=== PATIENT | male | born 1970 | race Caucasian/White ===

== ENCOUNTER 2019-12-18 05:38 | Emergency (ER) | payer MEDICAID ==
[~2019-12-18] VITALS: Ht 172.7 cm; Wt 89.0 kg
[2019-12-18] MEDS ORDERED: cloNIDine 0.1 mg tablet PO ONE (05:40)
[2019-12-18] MEDS ORDERED: normal saline 1000ML IV soln IVB ONE ×2 (05:40→07:00)
[2019-12-18 06:02] LABS: BASOPHILS # (AUTO) 0.1 X10'3 (0-0.2); BASOPHILS % (AUTO) 0.4 % (0-1); EOSINOPHILS # (AUTO) 0.2 X10'3 (0-0.9); EOSINOPHILS % (AUTO) 1.1 % (0-6); HEMATOCRIT 33.4 % (42.0-52.0); HEMOGLOBIN 10.9 g/dl (14.0-17.9); LYMPHOCYTES # (AUTO) 1.7 X10'3 (1.1-4.8); LYMPHOCYTES % (AUTO) 9.9 % (21-51); MEAN CORPUSCULAR HEMOGLOBIN 20.8 PG (27.0-31.0); MEAN CORPUSCULAR HGB CONC 32.6 g/dL (33.0-36.5); MEAN CORPUSCULAR VOLUME 63.8 FL (78-98); MEAN PLATELET VOLUME 7.6 FL (7.4-10.4); NEUTROPHILS # (AUTO) 13.8 X10'3 (1.8-7.7); NEUTROPHILS % (AUTO) 82.6 % (42-75); PLATELET COUNT 302 X10'3 (140-440); RED BLOOD COUNT 5.24 X10'6 (4.70-6.10); RED CELL DISTRIBUTION WIDTH 15.5 % (11.5-14.5); WHITE BLOOD COUNT 16.7 X10'3 (4.5-11.0)
[2019-12-18 06:23] LABS: ALANINE AMINOTRANSFERASE 38 U/L (12-78); ALBUMIN 4.2 G/DL (3.4-5.0); ALBUMIN/GLOBULIN RATIO 1.1 (1.1-1.5); ALKALINE PHOSPHATASE 102 IU/L (46-116); ANION GAP 14 (8-16); ASPARTATE AMINO TRANSFERASE 47 U/L (10-37); BILIRUBIN,TOTAL 0.5 MG/DL (0.1-1.0); BLOOD UREA NITROGEN 30 MG/DL (7-18); BUN/CREATININE RATIO 23.6 (5.4-32.0); CALCIUM 8.5 MG/DL (8.5-10.1); CHLORIDE 103 MMOL/L (99-107); CREATININE 1.27 MG/DL (0.60-1.10); GLUCOSE 175 MG/DL (70-104); POTASSIUM 3.8 MMOL/L (3.5-5.1); SODIUM 139 MMOL/L (135-145); TOTAL CARBON DIOXIDE 21.9 MMOL/L (24-32); TOTAL PROTEIN 7.9 G/DL (6.4-8.2); eGFR 60 ML/MIN
[2019-12-18 06:30] LABS: MAGNESIUM 2.3 MG/DL (1.5-2.4)
[2019-12-18 06:35] LABS: PLATELET ESTIMATE NORMAL; POLYCHROMASIA 1+
[2019-12-18 06:36] LABS: ANISOCYTOSIS 1+; ELLIPTOCYTES 1+; HYPOCHROMASIA 2+; MICROCYTOSIS 2+; TEAR DROP CELLS 2+
[2019-12-18] MEDS ORDERED: LORazepam 2 mg/ml vial IV ONE (07:00)
[2019-12-18 08:07] VITALS: BP 141/84
== END 2019-12-18 08:23 ==
LOC: ER 05:38
DX: S00.81XA Abrasion of other part of head, initial encounter (principal); T44.991A Poisoning by other drug primarily affecting the autonomic nervous system, accidental (unintentional), initial encounter; F12.90 Cannabis use, unspecified, uncomplicated; F15.90 Other stimulant use, unspecified, uncomplicated; Z88.0 Allergy status to penicillin; X58.XXXA Exposure to other specified factors, initial encounter; Y93.89 Activity, other specified; Y92.89 Other specified places as the place of occurrence of the external cause; Y99.9 Unspecified external cause status
CPT/HCPCS: 36415; 71045; 80053; 83735; 83880; 84484; 85025; 93005; 96374; 99284; J2060; J7030

== ENCOUNTER 2020-06-15 08:02 | Emergency (ER) | payer MEDICAID ==
[~2020-06-15] VITALS: Ht 172.7 cm; Wt 65.9 kg
[2020-06-15 08:12] VITALS: BP 148/82
[2020-06-15] MEDS ORDERED: PERM60CR19 TOP (08:45)
--- NOTE | 2020-06-15 08:50 | NUR ---
Patient seen and assessed by provider.
== END 2020-06-15 08:57 | disposition home or self-care (01) ==
LOC: ER 08:03
DX: B86 Scabies (principal); F12.90 Cannabis use, unspecified, uncomplicated; F15.90 Other stimulant use, unspecified, uncomplicated; F10.10 Alcohol abuse, uncomplicated; Z88.0 Allergy status to penicillin; Z79.899 Other long term (current) drug therapy; Y90.9 Presence of alcohol in blood, level not specified
CPT/HCPCS: 99283

== ENCOUNTER 2020-06-27 14:58 | Emergency (ER) | payer MEDICAID ==
[~2020-06-27] VITALS: Ht 172.7 cm; Wt 74.9 kg
[~2020-06-27 14:58] MED LIST: PERM60CR19 TOP
[2020-06-27 15:29] VITALS: BP 141/71
== END 2020-06-27 16:25 | disposition home or self-care (01) ==
LOC: ER 14:59
DX: F15.90 Other stimulant use, unspecified, uncomplicated (principal); F17.200 Nicotine dependence, unspecified, uncomplicated; F12.90 Cannabis use, unspecified, uncomplicated; F10.10 Alcohol abuse, uncomplicated; Z88.0 Allergy status to penicillin; Z79.899 Other long term (current) drug therapy; Y90.9 Presence of alcohol in blood, level not specified
CPT/HCPCS: 99281

== ENCOUNTER 2020-06-28 15:14 | Emergency (ER) | payer MEDICAID ==
[~2020-06-28] VITALS: Ht 175.3 cm; Wt 98.0 kg
[2020-06-28 16:20] LABS: BASOPHILS # (AUTO) 0.1 X10'3 (0-0.2); BASOPHILS % (AUTO) 1.2 % (0-1); EOSINOPHILS # (AUTO) 0.2 X10'3 (0-0.9); EOSINOPHILS % (AUTO) 2.7 % (0-6); HEMATOCRIT 34.6 % (42.0-52.0); HEMOGLOBIN 11.2 g/dl (14.0-17.9); LYMPHOCYTES # (AUTO) 2.7 X10'3 (1.1-4.8); MEAN CORPUSCULAR HGB CONC 32.3 g/dL (33.0-36.5); MEAN CORPUSCULAR VOLUME 65.1 FL (78-98); MEAN PLATELET VOLUME 8.2 FL (7.4-10.4); MONOCYTES # (AUTO) 0.4 X10'3 (0-0.9); MONOCYTES % (AUTO) 4.8 % (2-12); NEUTROPHILS # (AUTO) 4.8 X10'3 (1.8-7.7); NEUTROPHILS % (AUTO) 58.3 % (42-75); PLATELET COUNT 330 X10'3 (140-440); RED BLOOD COUNT 5.32 X10'6 (4.70-6.10); RED CELL DISTRIBUTION WIDTH 15.9 % (11.5-14.5); WHITE BLOOD COUNT 8.3 X10'3 (4.5-11.0)
[2020-06-28 16:28] LABS: CLARITY,URINE CLEAR (Clear); COLOR,URINE YELLOW (Yellow); GLUCOSE, URINE NEGATIVE (Neg); KETONES,URINE 15 mg/dl (Neg); LEUKOCYTE ESTERASE ,URINE NEGATIVE (Neg); NITRITES, URINE NEGATIVE (Neg); OCCULT BLOOD,URINE TRACE-INTACT (Neg); PH,URINE 6.5 (4.8-8.0); PROTEIN,URINE NEGATIVE (Neg)
[2020-06-28 16:32] LABS: UA COLLECTION TYPE CLN CATCH MIDSTREAM
[2020-06-28 16:34] LABS: BACTERIA,URINE FEW /HPF (Neg); MUCUS STRANDS FEW /LPF (Neg); SQUAMOUS EPITHELIAL CELL,UR FEW /LPF (FEW); WBC,URINE 0-4 /HPF (0-4)
[2020-06-28 16:35] LABS: ALANINE AMINOTRANSFERASE 25 U/L (12-78); ALBUMIN 3.8 G/DL (3.4-5.0); ALKALINE PHOSPHATASE 105 IU/L (46-116); ANION GAP 7 (8-16); ASPARTATE AMINO TRANSFERASE 27 U/L (10-37); BILIRUBIN,TOTAL 0.4 MG/DL (0.1-1.0); BLOOD UREA NITROGEN 17 MG/DL (7-18); BUN/CREATININE RATIO 21.8 (5.4-32.0); CALCIUM 8.5 MG/DL (8.5-10.1); CHLORIDE 103 MMOL/L (99-107); CREATININE 0.78 MG/DL (0.60-1.10); GLUCOSE 113 MG/DL (70-104); LIPASE 234 U/L (73-393); POTASSIUM 4.2 MMOL/L (3.5-5.1); SODIUM 139 MMOL/L (135-145); TOTAL CARBON DIOXIDE 28.6 MMOL/L (24-32); TOTAL PROTEIN 7.8 G/DL (6.4-8.2); eGFR > 90 ML/MIN
[2020-06-28 16:50] LABS: MICROCYTOSIS 2+; PLATELET ESTIMATE NORMAL
[2020-06-28 16:51] LABS: ELLIPTOCYTES 1+; SCHISTOCYTES FEW
[2020-06-28 16:52] LABS: TEAR DROP CELLS FEW
[2020-06-28 16:53] LABS: HYPOCHROMASIA 2+; POLYCHROMASIA FEW
[2020-06-28 17:36] VITALS: BP 140/89
== END 2020-06-28 17:37 | disposition home or self-care (01) ==
LOC: ER 15:15
DX: R10.11 Right upper quadrant pain (principal); R11.2 Nausea with vomiting, unspecified; F12.90 Cannabis use, unspecified, uncomplicated; F15.90 Other stimulant use, unspecified, uncomplicated; F10.10 Alcohol abuse, uncomplicated; Z86.19 Personal history of other infectious and parasitic diseases; Z88.0 Allergy status to penicillin; Z79.899 Other long term (current) drug therapy; Y90.9 Presence of alcohol in blood, level not specified
CPT/HCPCS: 36415; 76700; 80053; 81001; 83690; 85008; 85025; 99284

== ENCOUNTER 2020-08-13 10:31 | Emergency (ER) | payer MEDICAID ==
[~2020-08-13] VITALS: Ht 172.7 cm; Wt 74.5 kg
[2020-08-13 10:44] VITALS: BP 183/104
== END 2020-08-13 13:06 | disposition home or self-care (01) ==
LOC: ER 10:32
DX: B86 Scabies (principal); G89.29 Other chronic pain; R10.9 Unspecified abdominal pain; R19.7 Diarrhea, unspecified; L98.8 Other specified disorders of the skin and subcutaneous tissue; F15.90 Other stimulant use, unspecified, uncomplicated; F10.10 Alcohol abuse, uncomplicated; F12.90 Cannabis use, unspecified, uncomplicated; Z86.19 Personal history of other infectious and parasitic diseases; Z88.0 Allergy status to penicillin; Y90.9 Presence of alcohol in blood, level not specified
CPT/HCPCS: 99281

== ENCOUNTER 2021-03-05 00:51 | Emergency (ER) | payer MEDICAID ==
[~2021-03-05] VITALS: Ht 170.2 cm; Wt 74.1 kg
[2021-03-05 01:01] VITALS: BP 163/100
== END 2021-03-05 01:29 | disposition home or self-care (01) ==
LOC: ER 00:52
DX: F15.129 Other stimulant abuse with intoxication, unspecified (principal); F12.90 Cannabis use, unspecified, uncomplicated; F10.10 Alcohol abuse, uncomplicated; Z86.19 Personal history of other infectious and parasitic diseases; Z88.0 Allergy status to penicillin; Y90.9 Presence of alcohol in blood, level not specified
CPT/HCPCS: 99281

== ENCOUNTER 2022-06-27 12:35 | Emergency (ER) | payer MEDICAID ==
[~2022-06-27] VITALS: Ht 172.7 cm; Wt 76.0 kg
[2022-06-27 12:50] VITALS: BP 139/81
[2022-06-27 14:24] LABS: CLARITY,URINE CLEAR (Clear); COLOR,URINE YELLOW (Yellow); GLUCOSE, URINE NEGATIVE (Neg); KETONES,URINE NEGATIVE (Neg); LEUKOCYTE ESTERASE ,URINE NEGATIVE (Neg); NITRITES, URINE NEGATIVE (Neg); OCCULT BLOOD,URINE NEGATIVE (Neg); PROTEIN,URINE NEGATIVE (Neg)
[2022-06-27 14:27] LABS: UA COLLECTION TYPE NON-SPECIFIED
[2022-06-27 14:32] LABS: URINE AMPHETAMINE SCREEN POSITIVE (Neg); URINE BARBITUATE SCREEN NEGATIVE (Neg); URINE BENZODIAZEPINES SCREEN NEGATIVE (Neg); URINE CANNABINOID SCREEN POSITIVE (Neg); URINE COCAINE SCREEN NEGATIVE (Neg); URINE METHADONE SCREEN NEGATIVE (Neg); URINE OPIATE SCREEN NEGATIVE (Neg); URINE PHENCYCLIDINE SCREEN NEGATIVE (Neg)
[2022-06-27 14:36] LABS: ALANINE AMINOTRANSFERASE 38 U/L (12-78); ALBUMIN 3.6 G/DL (3.4-5.0); ALBUMIN/GLOBULIN RATIO 0.9 (1.1-1.5); ALKALINE PHOSPHATASE 90 IU/L (46-116); ANION GAP 9 (8-16); ASPARTATE AMINO TRANSFERASE 39 U/L (10-37); BILIRUBIN,TOTAL 0.7 MG/DL (0.1-1.0); BLOOD UREA NITROGEN 20 MG/DL (7-18); BUN/CREATININE RATIO 24.7 (5.4-32.0); CALCIUM 8.4 MG/DL (8.5-10.1); CHLORIDE 101 MMOL/L (99-107); CREATININE 0.81 MG/DL (0.60-1.10); GLUCOSE 150 MG/DL (70-104); POTASSIUM 3.8 MMOL/L (3.5-5.1); SODIUM 139 MMOL/L (135-145); TOTAL CARBON DIOXIDE 29.2 MMOL/L (24-32); TOTAL PROTEIN 7.5 G/DL (6.4-8.2); eGFR > 90 ML/MIN
[2022-06-27 14:38] LABS: BASOPHILS # (AUTO) 0.1 X10'3 (0-0.2); BASOPHILS % (AUTO) 0.7 % (0-1); EOSINOPHILS # (AUTO) 0.5 X10'3 (0-0.9); EOSINOPHILS % (AUTO) 5.4 % (0-6); HEMATOCRIT 30.3 % (42.0-52.0); HEMOGLOBIN 9.9 g/dl (14.0-17.9); LYMPHOCYTES # (AUTO) 1.9 X10'3 (1.1-4.8); LYMPHOCYTES % (AUTO) 21.9 % (21-51); MEAN CORPUSCULAR HEMOGLOBIN 20.8 PG (27.0-31.0); MEAN CORPUSCULAR HGB CONC 32.6 g/dL (33.0-36.5); MEAN CORPUSCULAR VOLUME 63.8 FL (78-98); MEAN PLATELET VOLUME 7.5 FL (7.4-10.4); MONOCYTES # (AUTO) 0.6 X10'3 (0-0.9); MONOCYTES % (AUTO) 6.7 % (2-12); NEUTROPHILS # (AUTO) 5.8 X10'3 (1.8-7.7); NEUTROPHILS % (AUTO) 65.3 % (42-75); PLATELET COUNT 308 X10'3 (140-440); RED BLOOD COUNT 4.75 X10'6 (4.70-6.10); RED CELL DISTRIBUTION WIDTH 16.4 % (11.5-14.5); WHITE BLOOD COUNT 8.8 X10'3 (4.5-11.0)
[2022-06-27 14:40] LABS: ETHANOL < 0.010 GM/DL (0.0-0.010); MAGNESIUM 2.2 MG/DL (1.5-2.4)
[2022-06-27 15:18] LABS: ANISOCYTOSIS 1+; MICROCYTOSIS 2+; PLATELET ESTIMATE NORMAL
[2022-06-27 15:19] LABS: ELLIPTOCYTES 1+; HYPOCHROMASIA 2+; SCHISTOCYTES FEW; TARGET CELLS FEW; TEAR DROP CELLS 1+
== END 2022-06-27 15:27 | disposition home or self-care (01) ==
LOC: ER 12:36
DX: F15.10 Other stimulant abuse, uncomplicated (principal); F12.90 Cannabis use, unspecified, uncomplicated; Z88.0 Allergy status to penicillin
CPT/HCPCS: 80053; 80305; 80320; 81003; 82948; 83735; 84484; 85008; 85025; 93005; 99284

== ENCOUNTER 2022-07-09 07:03 | Emergency (ER) | payer MEDICAID ==
[~2022-07-09] VITALS: Ht 172.7 cm; Wt 80.0 kg
[2022-07-09 07:06] VITALS: BP 162/83
[2022-07-09] MEDS ORDERED: ketorolac trometh. 30mg/ml inj. IM ONE (08:15)
== END 2022-07-09 08:35 | disposition home or self-care (01) ==
LOC: ER 07:04
DX: M54.50 Low back pain, unspecified (principal); F12.90 Cannabis use, unspecified, uncomplicated; F15.20 Other stimulant dependence, uncomplicated; G89.29 Other chronic pain; Z88.0 Allergy status to penicillin
CPT/HCPCS: 96372; 99283; J1885

== ENCOUNTER 2022-07-21 09:55 | Emergency (ER) | payer MEDICAID ==
[~2022-07-21] VITALS: Ht 172.7 cm; Wt 68.2 kg
[2022-07-21 11:01] VITALS: BP 137/93
[2022-07-21 11:47] LABS: BASOPHILS # (AUTO) 0.3 X10'3 (0-0.2); BASOPHILS % (AUTO) 1.5 % (0-1); EOSINOPHILS # (AUTO) 0.1 X10'3 (0-0.9); EOSINOPHILS % (AUTO) 0.8 % (0-6); HEMATOCRIT 38.9 % (42.0-52.0); HEMOGLOBIN 12.3 g/dl (14.0-17.9); LYMPHOCYTES % (AUTO) 17.4 % (21-51); MEAN CORPUSCULAR HGB CONC 31.6 g/dL (33.0-36.5); MEAN CORPUSCULAR VOLUME 63.3 FL (78-98); MEAN PLATELET VOLUME 7.5 FL (7.4-10.4); MONOCYTES # (AUTO) 1.6 X10'3 (0-0.9); MONOCYTES % (AUTO) 9.1 % (2-12); NEUTROPHILS # (AUTO) 12.4 X10'3 (1.8-7.7); NEUTROPHILS % (AUTO) 71.2 % (42-75); PLATELET COUNT 431 X10'3 (140-440); RED BLOOD COUNT 6.14 X10'6 (4.70-6.10); RED CELL DISTRIBUTION WIDTH 15.8 % (11.5-14.5); WHITE BLOOD COUNT 17.4 X10'3 (4.5-11.0)
[2022-07-21 12:03] LABS: ALANINE AMINOTRANSFERASE 50 U/L (12-78); ALBUMIN 5.1 G/DL (3.4-5.0); ALKALINE PHOSPHATASE 115 IU/L (46-116); ANION GAP 16 (8-16); ASPARTATE AMINO TRANSFERASE 105 U/L (10-37); BILIRUBIN,TOTAL 0.8 MG/DL (0.1-1.0); BLOOD UREA NITROGEN 36 MG/DL (7-18); BUN/CREATININE RATIO 8.9 (5.4-32.0); CALCIUM 9.6 MG/DL (8.5-10.1); CHLORIDE 87 MMOL/L (99-107); CREATININE 4.06 MG/DL (0.60-1.10); GLUCOSE 96 MG/DL (70-104); POTASSIUM 3.6 MMOL/L (3.5-5.1); SODIUM 129 MMOL/L (135-145); TOTAL CARBON DIOXIDE 25.7 MMOL/L (24-32); eGFR 16 ML/MIN
[2022-07-21 12:14] LABS: HYPOCHROMASIA 2+; PLATELET ESTIMATE NORMAL; POLYCHROMASIA 1+
[2022-07-21 12:15] LABS: ANISOCYTOSIS 1+; ELLIPTOCYTES 1+; MICROCYTOSIS 2+; SCHISTOCYTES FEW; TARGET CELLS FEW; TEAR DROP CELLS 1+
== END 2022-07-21 21:17 | disposition left against medical advice (07) ==
LOC: ER 10:03
DX: R20.0 Anesthesia of skin (principal); Z53.21 Procedure and treatment not carried out due to patient leaving prior to being seen by health care provider
CPT/HCPCS: 36415; 71045; 80053; 82948; 83880; 84484; 85008; 85025; 93005

== ENCOUNTER 2022-10-20 14:00 | Emergency (ER) | payer MEDICAID ==
[~2022-10-20] VITALS: Ht 172.7 cm; Wt 69.9 kg
[2022-10-20 14:31] VITALS: BP 141/80
== END 2022-10-20 17:25 | disposition left against medical advice (07) ==
LOC: ER 14:01
DX: Z00.00 Encounter for general adult medical examination without abnormal findings (principal); Z53.21 Procedure and treatment not carried out due to patient leaving prior to being seen by health care provider

== ENCOUNTER 2022-10-22 15:10 | Emergency (ER) | payer MEDICAID ==
[~2022-10-22] VITALS: Ht 167.6 cm; Wt 69.9 kg
[2022-10-22 15:42] VITALS: BP 165/88
== END 2022-10-22 18:19 | disposition left against medical advice (07) ==
LOC: ER 15:10
DX: M79.602 Pain in left arm (principal); Z53.21 Procedure and treatment not carried out due to patient leaving prior to being seen by health care provider

== ENCOUNTER 2022-11-15 15:17 | Emergency (ER) | payer MEDICAID ==
[~2022-11-15] VITALS: Ht 172.7 cm; Wt 63.6 kg
[2022-11-15 15:26] VITALS: BP 165/113
[2022-11-15] MEDS ORDERED: haloperidol 5mg tablet PO ONE (17:45)
[2022-11-15] MEDS ORDERED: diphenhydrAMINE 25mg capsule PO ONE (17:45)
[2022-11-15] MEDS ORDERED: metoclopramide 10mg tablet PO ONE (17:45)
[2022-11-15] MEDS ORDERED: MUPI22OI30 TOP (17:49)
== END 2022-11-15 18:05 | disposition home or self-care (01) ==
LOC: ER 15:17
DX: B89 Unspecified parasitic disease (principal); G89.29 Other chronic pain; M54.50 Low back pain, unspecified; F12.90 Cannabis use, unspecified, uncomplicated; F15.20 Other stimulant dependence, uncomplicated; Z88.0 Allergy status to penicillin
CPT/HCPCS: 99283; Q0163

== ENCOUNTER 2022-11-16 17:37 | Emergency (ER) | payer MEDICAID ==
[~2022-11-16] VITALS: Ht 172.7 cm; Wt 70.3 kg
[~2022-11-16 17:37] MED LIST changes: +MUPI22OI30 TOP; -PERM60CR19 TOP
[2022-11-16 18:49] LABS: BASOPHILS # (AUTO) 0.1 X10'3 (0-0.2); BASOPHILS % (AUTO) 0.6 % (0-1); EOSINOPHILS # (AUTO) 0.2 X10'3 (0-0.9); EOSINOPHILS % (AUTO) 1.8 % (0-6); HEMATOCRIT 29.6 % (42.0-52.0); HEMOGLOBIN 9.3 g/dl (14.0-17.9); LYMPHOCYTES % (AUTO) 16.8 % (21-51); MEAN CORPUSCULAR HGB CONC 31.4 g/dL (33.0-36.5); MEAN CORPUSCULAR VOLUME 63.8 FL (78-98); MEAN PLATELET VOLUME 7.1 FL (7.4-10.4); MONOCYTES # (AUTO) 0.7 X10'3 (0-0.9); MONOCYTES % (AUTO) 6.4 % (2-12); NEUTROPHILS # (AUTO) 8.7 X10'3 (1.8-7.7); NEUTROPHILS % (AUTO) 74.4 % (42-75); PLATELET COUNT 370 X10'3 (140-440); RED BLOOD COUNT 4.64 X10'6 (4.70-6.10); RED CELL DISTRIBUTION WIDTH 16.1 % (11.5-14.5); WHITE BLOOD COUNT 11.6 X10'3 (4.5-11.0)
[2022-11-16 19:02] LABS: ALANINE AMINOTRANSFERASE 47 U/L (12-78); ALBUMIN 3.4 G/DL (3.4-5.0); ALBUMIN/GLOBULIN RATIO 0.8 (1.1-1.5); ALKALINE PHOSPHATASE 105 IU/L (46-116); ANION GAP 9 (8-16); ASPARTATE AMINO TRANSFERASE 52 U/L (10-37); BILIRUBIN,TOTAL 0.5 MG/DL (0.1-1.0); BLOOD UREA NITROGEN 9 MG/DL (7-18); BUN/CREATININE RATIO 10.5 (5.4-32.0); CALCIUM 8.7 MG/DL (8.5-10.1); CHLORIDE 98 MMOL/L (99-107); CREATININE 0.86 MG/DL (0.60-1.10); GLUCOSE 125 MG/DL (70-104); POTASSIUM 3.8 MMOL/L (3.5-5.1); SODIUM 133 MMOL/L (135-145); TOTAL CARBON DIOXIDE 26.2 MMOL/L (24-32); TOTAL PROTEIN 7.5 G/DL (6.4-8.2); eGFR > 90 ML/MIN
[2022-11-16 19:05] LABS: ETHANOL < 0.010 GM/DL (0.0-0.010)
[2022-11-16 19:06] LABS: CLARITY,URINE CLEAR (Clear); COLOR,URINE YELLOW (Yellow); GLUCOSE, URINE NEGATIVE (Neg); KETONES,URINE NEGATIVE (Neg); LEUKOCYTE ESTERASE ,URINE TRACE (Neg); NITRITES, URINE NEGATIVE (Neg); OCCULT BLOOD,URINE NEGATIVE (Neg); PH,URINE 6.5 (4.8-8.0); PROTEIN,URINE NEGATIVE (Neg)
[2022-11-16 19:13] LABS: PLATELET ESTIMATE NORMAL
[2022-11-16 19:14] LABS: ANISOCYTOSIS 1+; MICROCYTOSIS 2+
[2022-11-16 19:15] LABS: ELLIPTOCYTES FEW; POLYCHROMASIA FEW; TARGET CELLS FEW; TEAR DROP CELLS FEW
[2022-11-16 19:17] LABS: UA COLLECTION TYPE CLN CATCH MIDSTREAM
[2022-11-16 19:19] LABS: BACTERIA,URINE FEW /HPF (Neg); RBC,URINE 0-2 /HPF (0-2); SQUAMOUS EPITHELIAL CELL,UR FEW /LPF (FEW)
[2022-11-16 19:22] LABS: URINE AMPHETAMINE SCREEN POSITIVE (Neg); URINE BARBITUATE SCREEN NEGATIVE (Neg); URINE BENZODIAZEPINES SCREEN NEGATIVE (Neg); URINE CANNABINOID SCREEN NEGATIVE (Neg); URINE COCAINE SCREEN NEGATIVE (Neg); URINE METHADONE SCREEN NEGATIVE (Neg); URINE OPIATE SCREEN NEGATIVE (Neg); URINE PHENCYCLIDINE SCREEN NEGATIVE (Neg)
--- NOTE | 2022-11-16 19:43 | NUR ---
PT ARRIVED TO O/F. HE IS DRESSING IN GREEN SCRUBS, AND BELONGINGS ARE BEING TAKEN. WILL AWAIT EDMD ASSESSMENT.
[2022-11-16] MEDS ORDERED: olanzapine 10mg tablet PO ONE (20:05)
[2022-11-16] MEDS ORDERED: ibuprofen tablet 400 MG TABLET PO STA (20:30)
--- NOTE | 2022-11-16 20:30 | NUR ---
I agree with A Toney Vargas assessment.
[2022-11-16] MEDS ORDERED: cephalexin 250mg capsule PO ONE (21:00)
--- NOTE | 2022-11-16 22:21 | NUR ---
TWO PTS WERE SCREAMING, CRYING, AND BEING DISRUPTIVE. PT MADE REMARKS THAT HE WOULD BE LEAVING. STAFF INFORMED THE PT THAT HE COULD NOT AT THIS TIME. SECURITY CAME THROUGH TO ASSOST WIOTH ANOTHER PT, AND THIS PT FELL ASLEEP INSTANTLY. THIS IS DISPLAYED BY THE CURRENT SNORING. WILL CONTINUE TO MONITOR BEHAVIOR.
--- NOTE | 2022-11-16 22:47 | NUR ---
pt on a 1798 so NATASHA elevated to level 2
--- NOTE | 2022-11-16 23:06 | NUR ---
PT IS ASLEEP. BREATHING IS EVEN AND UNLABORED. NO APPARENT NEEDS AT THIS TIME.
--- NOTE | 2022-11-16 23:22 | NUR ---
PACKET FAXED TO [facility].
--- NOTE | 2022-11-17 00:16 | NUR ---
PT AMBULATED TO THE RESTROOM. UPON COMING OUT OF THE RESTROOM, PT APPEARED TO BE DISORIENTED AND HAD TO BE REDIRECTED TO HIS BED. PT DOES NOT APPEAR TO BE IN ANY DISTRESS CURRENTLY.
--- NOTE | 2022-11-17 06:45 | NUR ---
PT RESTING ON BACK WITH EYES CLOSED, EFFORTLESS RESPIRATIONS OBSERVED.
--- NOTE | 2022-11-17 08:20 | NUR ---
RECEIVED REPORT FROM OSCAR BUSTAMANTE. AT THIS TIME PT IS RESTING W/ EYES CLOSED. PT ARREARS TO SHOW NO S/S OF ACUTE DISTRESS. BED LOCKED AND LOW, PT IN LINE OF SIGHT.
--- NOTE | 2022-11-17 08:30 | NUR ---
PT SITTING UPRIGHT EATING BREAKFAST. NO COMPLAINTS, OR REQUESTS AT THIS TIME.
--- NOTE | 2022-11-17 10:23 | NUR ---
SPOKE WITH MARIA R (NURSE FROM [facility]) REGARDING PT PLACEMENT. WAS TOLD THAT [facility] WILL BE UPDATED.
--- NOTE | 2022-11-17 11:03 | NUR ---
SIDDHARTHA (NURSE FROM [facility]) CALLED STATED THAT [facility] PROVIDER IS REQUESTING UPDATED LABS AND TSH LEVEL TO MONITOR TREND PRIOR TO ACCEPTING PT.
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
--- NOTE | 2022-11-17 13:34 | NUR ---
SIDDHARTHA FROM ME CALLED TO INFORM ME THAT [facility] DENIED PLACEMENT DUE TO US NOT PROVIDING NEW LABWORK.
[2022-11-17] MEDS: cephalexin 500mg capsule PO SCH (19:51)
--- NOTE | 2022-11-18 06:45 | NUR ---
Patient appears to be sleeping in bed. Respirations are even and nonlaboed.
[2022-11-18] MEDS: cephalexin 500mg capsule PO SCH ×2 (08:46→20:23)
--- NOTE | 2022-11-18 10:54 | NUR ---
Patient lying in bed sleeping, somewhat restless. No S/S of distress noted.
--- NOTE | 2022-11-18 13:17 | NUR ---
Patient is sitting up eating his lunch.
[2022-11-18] MEDS ORDERED: NO HOME MEDS (14:26)
--- NOTE | 2022-11-18 14:46 | NUR ---
Patient remains sleeping in bed.
--- NOTE | 2022-11-18 18:15 | NUR ---
Patient ate dinner, then up to the restroom.
[2022-11-18] MEDS ORDERED: acetaminophen 325mg tablet PO ONE (20:20)
--- NOTE | 2022-11-18 20:24 | NUR ---
pt requested meds for a headache md informed , awaiting orders po med x2 given
--- NOTE | 2022-11-19 03:04 | NUR ---
General Assessment reviewed
--- NOTE | 2022-11-19 06:49 | NUR ---
LN received report from NOC nurse, no changes overnight, pt resting comfortably att.
[2022-11-19] MEDS: cephalexin 500mg capsule PO SCH ×2 (08:10→20:24)
--- NOTE | 2022-11-19 08:18 | NUR ---
Pt awake and sitting up eating breakfast, pt ate approx 100% of breakfast. No c/o pain and took medication at 0800 as ordered.
--- NOTE | 2022-11-19 10:21 | NUR ---
Pt is resting well att. Pt has been pleasant and cooperative with staff.
--- NOTE | 2022-11-19 12:22 | NUR ---
Pt is awake and sitting up in bed, MH completing evaluation, Pt is also eating lunch well. No complaints att.
--- NOTE | 2022-11-19 14:22 | NUR ---
Pt evaluated by and hold has been renewed. Pt is resting comfortably att.
--- NOTE | 2022-11-19 16:04 | NUR ---
Pt continues to be cooperative with all care. Pt resting comfortably att.
--- NOTE | 2022-11-19 21:22 | NUR ---
GENERAL ASSESSMENT REVIEWED
--- NOTE | 2022-11-20 06:25 | NUR ---
Patient sleeping supine. No distress observed. Continue to monitor.
--- NOTE | 2022-11-20 08:18 | NUR ---
Patient eating lunch. No distress observed. Continue to monitor. Addendum: 11/20/22 at 1510 by JAYCE eating breakfast...
[2022-11-20] MEDS: cephalexin 500mg capsule PO SCH ×2 (09:58→19:03)
--- NOTE | 2022-11-20 10:17 | NUR ---
Patient sleeping on right side. No distress observed. Continue to monitor.
[2022-11-20 10:57] LABS: BASOPHILS # (AUTO) 0.1 X10'3 (0-0.2); BASOPHILS % (AUTO) 1.3 % (0-1); EOSINOPHILS # (AUTO) 0.4 X10'3 (0-0.9); EOSINOPHILS % (AUTO) 4.7 % (0-6); HEMATOCRIT 35.6 % (42.0-52.0); HEMOGLOBIN 11.3 g/dl (14.0-17.9); LYMPHOCYTES # (AUTO) 2.1 X10'3 (1.1-4.8); LYMPHOCYTES % (AUTO) 24.1 % (21-51); MEAN CORPUSCULAR HEMOGLOBIN 20.3 PG (27.0-31.0); MEAN CORPUSCULAR HGB CONC 31.8 g/dL (33.0-36.5); MEAN PLATELET VOLUME 7.3 FL (7.4-10.4); MONOCYTES # (AUTO) 0.7 X10'3 (0-0.9); MONOCYTES % (AUTO) 7.6 % (2-12); NEUTROPHILS # (AUTO) 5.5 X10'3 (1.8-7.7); NEUTROPHILS % (AUTO) 62.3 % (42-75); PLATELET COUNT 412 X10'3 (140-440); RED BLOOD COUNT 5.56 X10'6 (4.70-6.10); RED CELL DISTRIBUTION WIDTH 16.4 % (11.5-14.5); WHITE BLOOD COUNT 8.9 X10'3 (4.5-11.0)
[2022-11-20 11:06] LABS: ALANINE AMINOTRANSFERASE 34 U/L (12-78); ALBUMIN 3.5 G/DL (3.4-5.0); ALBUMIN/GLOBULIN RATIO 0.8 (1.1-1.5); ALKALINE PHOSPHATASE 88 IU/L (46-116); ANION GAP 9 (8-16); ASPARTATE AMINO TRANSFERASE 24 U/L (10-37); BILIRUBIN,TOTAL 0.4 MG/DL (0.1-1.0); BLOOD UREA NITROGEN 18 MG/DL (7-18); BUN/CREATININE RATIO 23.7 (5.4-32.0); CALCIUM 9.1 MG/DL (8.5-10.1); CHLORIDE 101 MMOL/L (99-107); CREATININE 0.76 MG/DL (0.60-1.10); GLUCOSE 103 MG/DL (70-104); POTASSIUM 4.3 MMOL/L (3.5-5.1); SODIUM 136 MMOL/L (135-145); TOTAL CARBON DIOXIDE 26.1 MMOL/L (24-32); TOTAL PROTEIN 8.1 G/DL (6.4-8.2); eGFR > 90 ML/MIN
--- NOTE | 2022-11-20 12:14 | NUR ---
Patient eating lunch. No distress observed. Continue to monitor.
--- NOTE | 2022-11-20 14:03 | NUR ---
Patient ambulatory to BR, steady gait. No distress observed. Continue to monitor.
--- NOTE | 2022-11-20 15:12 | NUR ---
Patient sleeping supine. No distress observed. Continue to monitor.
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
--- NOTE | 2022-11-20 18:05 | NUR ---
Patient accepted at [facility]. Patient leaving tonight at 1999. Patient is aware. No distress observed.
[2022-11-20 18:07] VITALS: BP 130/77
--- NOTE | 2022-11-20 20:15 | NUR ---
[facility] AT BEDSIDE FOR TX. PT REMOVED FROM GREEN SCRUBS AND PUT IN OWN CLOTHS. [facility]UR[facility] AT BEDSIDE TO ASSIST
== END 2022-11-20 20:53 ==
LOC: ER 17:38
DX: F29 Unspecified psychosis not due to a substance or known physiological condition (principal); Z20.822 Contact with and (suspected) exposure to COVID-19; F15.10 Other stimulant abuse, uncomplicated; N39.0 Urinary tract infection, site not specified; F12.10 Cannabis abuse, uncomplicated; G89.29 Other chronic pain; M54.9 Dorsalgia, unspecified; Z87.19 Personal history of other diseases of the digestive system; Z88.0 Allergy status to penicillin; Z79.899 Other long term (current) drug therapy
CPT/HCPCS: 36415; 80053; 80305; 80320; 81001; 82140; 84443; 85008; 85025; 87811; 99285

== ENCOUNTER 2023-05-17 20:32 | Emergency (ER) | payer MEDICAID ==
[~2023-05-17] VITALS: Ht 172.7 cm; Wt 72.7 kg
[~2023-05-17 20:32] MED LIST changes: -MUPI22OI30 TOP; +NO HOME MEDS
[2023-05-17 20:50] VITALS: BP 127/83
--- NOTE | 2023-05-17 21:34 | NUR ---
PT REPORTS HE HAS PARASITES CRAWLING OUT OF WOUNDS ON HIS BODY. PT ADMITS TO USING METH X2 DAYS AGO BUT STATES "THIS IS NOT RELATED AND I AM NOT HALLUCINATING". NO PARACITES SEEN BY MILL MANAGER DESPITE THE PT SHOWING THE CYLINDER BLOCK HOLE RELINER WHERE HE SEES THE PARASITES.
== END 2023-05-17 22:03 | disposition home or self-care (01) ==
LOC: ER 20:32
DX: S91.302A Unspecified open wound, left foot, initial encounter (principal); S91.301A Unspecified open wound, right foot, initial encounter; G89.29 Other chronic pain; Z87.19 Personal history of other diseases of the digestive system; F12.90 Cannabis use, unspecified, uncomplicated; F15.10 Other stimulant abuse, uncomplicated; Z72.89 Other problems related to lifestyle; Z88.0 Allergy status to penicillin; X58.XXXA Exposure to other specified factors, initial encounter; Y93.89 Activity, other specified; Y92.89 Other specified places as the place of occurrence of the external cause; Y99.8 Other external cause status
CPT/HCPCS: 99282

== ENCOUNTER 2023-05-26 15:34 | Emergency (ER) | payer MEDICAID ==
[~2023-05-26] VITALS: Ht 172.7 cm; Wt 70.0 kg
[2023-05-26 15:42] VITALS: BP 137/89
[2023-05-26 17:28] LABS: ALANINE AMINOTRANSFERASE 38 U/L (12-78); ALBUMIN 4.3 G/DL (3.4-5.0); ALBUMIN/GLOBULIN RATIO 0.9 (1.1-1.5); ALKALINE PHOSPHATASE 103 IU/L (46-116); ANION GAP 16 (8-16); ASPARTATE AMINO TRANSFERASE 39 U/L (10-37); BILIRUBIN,TOTAL 0.7 MG/DL (0.1-1.0); BLOOD UREA NITROGEN 63 MG/DL (7-18); BUN/CREATININE RATIO 34.2 (10.0-20.0); CALCIUM 8.9 MG/DL (8.5-10.1); CHLORIDE 91 MMOL/L (99-107); CREATININE 1.84 MG/DL (0.60-1.10); GLUCOSE 113 MG/DL (70-104); POTASSIUM 3.7 MMOL/L (3.5-5.1); SODIUM 131 MMOL/L (135-145); TOTAL CARBON DIOXIDE 24.5 MMOL/L (24-32); eGFR 39 ML/MIN
[2023-05-26 17:29] LABS: BASOPHILS # (AUTO) 0.1 X10'3 (0-0.2); BASOPHILS % (AUTO) 0.6 % (0-1); EOSINOPHILS # (AUTO) 0.4 X10'3 (0-0.9); EOSINOPHILS % (AUTO) 3.1 % (0-6); HEMATOCRIT 37.4 % (42.0-52.0); HEMOGLOBIN 11.9 g/dl (14.0-17.9); LYMPHOCYTES # (AUTO) 2.5 X10'3 (1.1-4.8); LYMPHOCYTES % (AUTO) 20.2 % (21-51); MEAN CORPUSCULAR HEMOGLOBIN 20.1 PG (27.0-31.0); MEAN CORPUSCULAR HGB CONC 31.8 g/dL (33.0-36.5); MEAN PLATELET VOLUME 7.5 FL (7.4-10.4); MONOCYTES # (AUTO) 1.4 X10'3 (0-0.9); MONOCYTES % (AUTO) 11.2 % (2-12); NEUTROPHILS # (AUTO) 7.9 X10'3 (1.8-7.7); NEUTROPHILS % (AUTO) 64.9 % (42-75); PLATELET COUNT 477 X10'3 (140-440); RED BLOOD COUNT 5.93 X10'6 (4.70-6.10); WHITE BLOOD COUNT 12.2 X10'3 (4.5-11.0)
[2023-05-26 17:37] LABS: ETHANOL < 0.010 GM/DL (0.0-0.010)
[2023-05-26] MEDS ORDERED: normal saline 1000ml 1,000 ML IV ONE (17:55)
[2023-05-27 05:22] LABS: ELLIPTOCYTES FEW; PLATELET ESTIMATE INCREASED; TARGET CELLS FEW
[2023-05-27 05:23] LABS: ANISOCYTOSIS 1+; MICROCYTOSIS 2+; SPHEROCYTES FEW; TEAR DROP CELLS 1+
== END 2023-05-26 19:30 | disposition left against medical advice (07) ==
LOC: ER 15:35
DX: R45.851 Suicidal ideations (principal); G89.29 Other chronic pain; M54.9 Dorsalgia, unspecified; F12.10 Cannabis abuse, uncomplicated; F15.10 Other stimulant abuse, uncomplicated; Z88.0 Allergy status to penicillin
CPT/HCPCS: 36415; 80053; 80320; 84443; 85008; 85025; 99283; 99285

== ENCOUNTER 2023-05-26 19:34 | Inpatient (IN) | payer MEDICAID ==
[~2023-05-26] VITALS: Ht 172.7 cm; Wt 70.0 kg
[2023-05-26 21:54] LABS: URINE AMPHETAMINE SCREEN POSITIVE (Neg); URINE BARBITUATE SCREEN NEGATIVE (Neg); URINE BENZODIAZEPINES SCREEN NEGATIVE (Neg); URINE CANNABINOID SCREEN NEGATIVE (Neg); URINE COCAINE SCREEN NEGATIVE (Neg); URINE METHADONE SCREEN NEGATIVE (Neg); URINE OPIATE SCREEN NEGATIVE (Neg); URINE PHENCYCLIDINE SCREEN NEGATIVE (Neg)
[2023-05-26] MEDS ORDERED: normal saline 1000ML IV soln IVB ONE (23:50)
[2023-05-27] MEDS ORDERED: potassium Cl 40MEQ/1/2NS 520ml 520 ML IV PRN (00:35)
[2023-05-27] MEDS: normal saline 1000ml 1,000 ML IV SCH ×3 (00:35→20:55)
[2023-05-27] MEDS ORDERED: ondansetron/PF 4mg/2ml inj IV PRN (00:35)
[2023-05-27] MEDS ORDERED: morphine 2 MG/ML inj. syringe IV PRN (00:35)
[2023-05-27] MEDS ORDERED: magnesium Cl slow-release 64mg tablet PO PRN (00:35)
[2023-05-27] MEDS ORDERED: magnesium 4gm in 100ml NS 100 ML IV PRN (00:35)
[2023-05-27] MEDS ORDERED: acetaminophen 325mg tablet PO PRN (00:35)
[2023-05-27] MEDS ORDERED: magnesium 2GM in 50ml NS 50 ML IV PRN (00:35)
[2023-05-27] MEDS ORDERED: potassium Cl 20 mEq SR tablet PO PRN ×2 (00:35)
[2023-05-27 02:48] LABS: MAGNESIUM 2.4 MG/DL (1.5-2.4); POTASSIUM 3.5 MMOL/L (3.5-5.1)
--- NOTE | 2023-05-27 07:00 | NUR ---
Pt was in bed resting w/ his eyes closed.
[2023-05-27] MEDS: nicotine 14mg patch - 24hr TD SCH (08:00)
[2023-05-27] MEDS: heparin, porcine 5000 units/ml vial SQ SCH ×2 (08:00→20:45)
--- NOTE | 2023-05-27 08:00 | NUR ---
Pt sitting on the side of the bed. Pt states he did want to hurt himself when he first came in. But he feels okay now. Pt was educated to POC. Pt in agreement. Pt awaiting breakfast.
--- NOTE | 2023-05-27 09:11 | NUR ---
Notified of refused 0800 medications. No new orders at this time.
--- NOTE | 2023-05-27 10:19 | NUR ---
Pt laying down in bed resting. Lights are off.
--- NOTE | 2023-05-27 11:17 | NUR ---
PT IN BED RESTING W/ HIS EYES CLOSED. PT REQUESTED SOME ICE WATER.
[2023-05-27 11:20] LABS: ALANINE AMINOTRANSFERASE 29 U/L (12-78); ALBUMIN 3.2 G/DL (3.4-5.0); ALBUMIN/GLOBULIN RATIO 0.8 (1.1-1.5); ALKALINE PHOSPHATASE 83 IU/L (46-116); ANION GAP 9 (8-16); ASPARTATE AMINO TRANSFERASE 27 U/L (10-37); BASOPHILS # (AUTO) 0.1 X10'3 (0-0.2); BASOPHILS % (AUTO) 0.8 % (0-1); BILIRUBIN,TOTAL 0.4 MG/DL (0.1-1.0); BLOOD UREA NITROGEN 35 MG/DL (7-18); BUN/CREATININE RATIO 37.2 (10.0-20.0); CALCIUM 8.4 MG/DL (8.5-10.1); CHLORIDE 103 MMOL/L (99-107); CREATININE 0.94 MG/DL (0.60-1.10); EOSINOPHILS # (AUTO) 0.2 X10'3 (0-0.9); EOSINOPHILS % (AUTO) 2.1 % (0-6); GLUCOSE 91 MG/DL (70-104); HEMATOCRIT 31.8 % (42.0-52.0); HEMOGLOBIN 10.2 g/dl (14.0-17.9); LYMPHOCYTES # (AUTO) 2.3 X10'3 (1.1-4.8); LYMPHOCYTES % (AUTO) 26.5 % (21-51); MEAN CORPUSCULAR HEMOGLOBIN 20.4 PG (27.0-31.0); MEAN CORPUSCULAR HGB CONC 32.1 g/dL (33.0-36.5); MEAN CORPUSCULAR VOLUME 63.4 FL (78-98); MEAN PLATELET VOLUME 7.7 FL (7.4-10.4); MONOCYTES # (AUTO) 0.8 X10'3 (0-0.9); MONOCYTES % (AUTO) 9.8 % (2-12); NEUTROPHILS # (AUTO) 5.2 X10'3 (1.8-7.7); NEUTROPHILS % (AUTO) 60.8 % (42-75); PLATELET COUNT 371 X10'3 (140-440); RED BLOOD COUNT 5.02 X10'6 (4.70-6.10); RED CELL DISTRIBUTION WIDTH 15.8 % (11.5-14.5); SODIUM 136 MMOL/L (135-145); TOTAL CARBON DIOXIDE 23.8 MMOL/L (24-32); WHITE BLOOD COUNT 8.5 X10'3 (4.5-11.0); eGFR 84 ML/MIN
[2023-05-27 11:30] LABS: CHOL/HDL RATIO 2.8 (0.00-4.99); CHOLESTEROL 108 MG/DL (0-200); HDL CHOLESTEROL 39 MG/DL (35-60); LDL CHOLESTEROL 50 MG/DL (50-100); MAGNESIUM 2.3 MG/DL (1.5-2.4); PHOSPHORUS 1.9 MG/DL (2.3-4.5); TRIGLYCERIDES 101 MG/DL (20-135)
[2023-05-27 11:36] LABS: ACETAMINOPHEN < 2.0 UG/ML (10-30); HEMOGLOBIN A1C 5.5 % (4.5-6.2)
--- NOTE | 2023-05-27 12:18 | NUR ---
Pt laying down, eye closed resting.
--- NOTE | 2023-05-27 13:38 | NUR ---
Pt sitting up[ on the beverly eof the bed eating lunch.
[2023-05-27 13:56] LABS: MICROCYTOSIS 2+; PLATELET ESTIMATE NORMAL
[2023-05-27 13:57] LABS: ELLIPTOCYTES FEW; TARGET CELLS FEW; TEAR DROP CELLS FEW
[2023-05-27 13:58] LABS: SCHISTOCYTES FEW
--- NOTE | 2023-05-27 14:53 | NUR ---
PT LAYING ON HomeStay.
--- NOTE | 2023-05-27 15:53 | NUR ---
Pt requested Apple Juice. Pt sitting on side of his bed. Pt is calm and cooperative.
--- NOTE | 2023-05-27 16:20 | NUR ---
No behaviors. Pt is calm and cooperative. Pt is laying down resting.
--- NOTE | 2023-05-27 17:27 | NUR ---
Pt laying down on gurney, eyes closed. Pt is resting.
--- NOTE | 2023-05-27 20:05 | NUR ---
PT SELF REMOVED IV CATH AND STATED HE DIDNT WANT ANY MORE FLUID.
[2023-05-27] MEDS ORDERED: temazepam 15mg capsule PO PRN (21:00)
--- NOTE | 2023-05-28 00:09 | NUR ---
REPORT GIVEN TO OVERFLOW NURSE PT MOVED TO ROOM 25
--- NOTE | 2023-05-28 00:34 | NUR ---
Received pt from main ER, pt is awaiting to be admitted upstairs. Pt is also on a 1799.
--- NOTE | 2023-05-28 02:44 | NUR ---
Pt appears to be sleeping.
--- NOTE | 2023-05-28 03:15 | NUR ---
Pt woke up c/o cramping in his right buttock area. PRN tylenol given with good effect.
[2023-05-28] MEDS: acetaminophen 325mg tablet PO PRN ×2 (03:36→11:39)
--- NOTE | 2023-05-28 05:10 | NUR ---
pt appears to be sleeping.
--- NOTE | 2023-05-28 06:30 | NUR ---
Patient received sleeping in his room at change of shift. Pt noted sleeping supine with equal rise and fall of chest. Will continue to monitor.
[2023-05-28] MEDS: normal saline 1000ml 1,000 ML IV SCH (06:55)
--- NOTE | 2023-05-28 08:00 | NUR ---
Patient awoke for breakfast and was receptive to 1:1 assessment. Pt endorsed feelings of SI, no specific plan at this time. He denies HI, AH or VH. Pt is pleasant, calm, and cooperative with care. He is noted eating breakfast in his room at this time. No s/s of distress.
[2023-05-28 08:04] LABS: BASOPHILS # (AUTO) 0.1 X10'3 (0-0.2); BASOPHILS % (AUTO) 1.1 % (0-1); EOSINOPHILS # (AUTO) 0.1 X10'3 (0-0.9); EOSINOPHILS % (AUTO) 2.4 % (0-6); HEMOGLOBIN 9.1 g/dl (14.0-17.9); LYMPHOCYTES # (AUTO) 2.5 X10'3 (1.1-4.8); LYMPHOCYTES % (AUTO) 45.5 % (21-51); MEAN CORPUSCULAR HEMOGLOBIN 20.2 PG (27.0-31.0); MEAN CORPUSCULAR HGB CONC 31.5 g/dL (33.0-36.5); MEAN CORPUSCULAR VOLUME 64.2 FL (78-98); MEAN PLATELET VOLUME 7.6 FL (7.4-10.4); MONOCYTES # (AUTO) 0.6 X10'3 (0-0.9); MONOCYTES % (AUTO) 10.4 % (2-12); NEUTROPHILS # (AUTO) 2.3 X10'3 (1.8-7.7); NEUTROPHILS % (AUTO) 40.6 % (42-75); PLATELET COUNT 331 X10'3 (140-440); RED BLOOD COUNT 4.52 X10'6 (4.70-6.10); RED CELL DISTRIBUTION WIDTH 16.3 % (11.5-14.5); WHITE BLOOD COUNT 5.6 X10'3 (4.5-11.0)
[2023-05-28 08:23] LABS: ALANINE AMINOTRANSFERASE 24 U/L (12-78); BLOOD UREA NITROGEN 23 MG/DL (7-18); BUN/CREATININE RATIO 32.9 (10.0-20.0); CHLORIDE 105 MMOL/L (99-107); POTASSIUM 4.1 MMOL/L (3.5-5.1); SODIUM 137 MMOL/L (135-145); eGFR > 90 ML/MIN
[2023-05-28 08:31] LABS: ALBUMIN 2.8 G/DL (3.4-5.0); ALBUMIN/GLOBULIN RATIO 0.9 (1.1-1.5); ALKALINE PHOSPHATASE 65 IU/L (46-116); ANION GAP 6 (8-16); ASPARTATE AMINO TRANSFERASE 18 U/L (10-37); BILIRUBIN,TOTAL 0.4 MG/DL (0.1-1.0); CALCIUM 8.1 MG/DL (8.5-10.1); GLUCOSE 98 MG/DL (70-104); MAGNESIUM 1.9 MG/DL (1.5-2.4); PHOSPHORUS 1.7 MG/DL (2.3-4.5); TOTAL CARBON DIOXIDE 26.5 MMOL/L (24-32)
[2023-05-28] MEDS: heparin, porcine 5000 units/ml vial SQ SCH (08:44)
[2023-05-28] MEDS: nicotine 14mg patch - 24hr TD SCH (08:45)
--- NOTE | 2023-05-28 10:00 | NUR ---
Pt noted sleeping in his room at this time. No s/s of distress. Respirations even, unlabored. Will cont to monitor.
--- NOTE | 2023-05-28 11:04 | NUR ---
Met with patient in regards to substance use and to see if patient was interested in resources for treatment options. Patient is interested in resources. Patient recently was accepted to a program he said and he never followed through. Patient would like to start process again. I gave patient [facility] information, a list of resources and my card to call me with any questions.
--- NOTE | 2023-05-28 11:49 | NUR ---
Pt awoke and endorsed c/o right sided lower back pain. PRN Tylenol provided per MD order. Pt retreated back to sleep after given medication. No complaints or changes noted at this time.
--- NOTE | 2023-05-28 13:21 | NUR ---
Patient noted sleeping in his room at this time. No s/s of distress. Respirations even, unlabored.
[2023-05-28 13:35] VITALS: BP 109/65
--- NOTE | 2023-05-28 15:38 | NUR ---
Pt appears to be sleeping. Equal rise and fall of chest. Will continue to monitor.
== END 2023-05-28 16:17 | disposition home or self-care (01) | DRG 469 ==
LOC: ER 19:38 → ED HOLD 05-27 00:41
PROVIDERS: ADMIT Internal Medicine; ATTEND Family Medicine
DX: N17.0 Acute kidney failure with tubular necrosis (principal); R45.851 Suicidal ideations; R74.01 Elevation of levels of liver transaminase levels; Z20.822 Contact with and (suspected) exposure to COVID-19; E86.0 Dehydration; Z59.00 Homelessness unspecified; Z87.891 Personal history of nicotine dependence; Z88.0 Allergy status to penicillin; Z98.1 Arthrodesis status; Z86.19 Personal history of other infectious and parasitic diseases
CPT/HCPCS: 36415; 71045; 80053; 80061; 80305; 80320; 80329; 83036; 83735; 84100; 84132; 84443; 85008; 85025; 87811; 99285; G0378; J1644; J7030

== ENCOUNTER 2023-06-06 18:06 | Emergency (ER) | payer MEDICAID ==
[~2023-06-06] VITALS: Ht 172.7 cm; Wt 68.0 kg
[2023-06-06 18:08] VITALS: TEMP 98.1
[2023-06-06 18:39] LABS: BASOPHILS % (AUTO) 0.3 % (0-1); EOSINOPHILS # (AUTO) 0.1 X10'3 (0-0.9); HEMOGLOBIN 8.5 g/dl (14.0-17.9)
[2023-06-06 18:41] LABS: HEMATOCRIT 27.3 % (42.0-52.0); LYMPHOCYTES # (AUTO) 1.6 X10'3 (1.1-4.8); LYMPHOCYTES % (AUTO) 10.7 % (21-51); MEAN CORPUSCULAR HEMOGLOBIN 19.9 PG (27.0-31.0); MEAN CORPUSCULAR HGB CONC 31.3 g/dL (33.0-36.5); MEAN CORPUSCULAR VOLUME 63.5 FL (78-98); MEAN PLATELET VOLUME 7.6 FL (7.4-10.4); MONOCYTES # (AUTO) 0.9 X10'3 (0-0.9); MONOCYTES % (AUTO) 6.3 % (2-12); NEUTROPHILS # (AUTO) 11.9 X10'3 (1.8-7.7); NEUTROPHILS % (AUTO) 81.7 % (42-75); PLATELET COUNT 339 X10'3 (140-440); RED BLOOD COUNT 4.29 X10'6 (4.70-6.10); RED CELL DISTRIBUTION WIDTH 15.8 % (11.5-14.5); WHITE BLOOD COUNT 14.5 X10'3 (4.5-11.0)
--- NOTE | 2023-06-06 18:42 | NUR ---
PT UNABLE TO PROVIDE URINE SAMPLE AT THIS TIME, PER WENDY LIAO, OK TO WAIT
[2023-06-06] MEDS ORDERED: normal saline 1000ML IV soln IVB ONE (18:50)
[2023-06-06 18:55] LABS: ALANINE AMINOTRANSFERASE 43 U/L (12-78); ALBUMIN 3.4 G/DL (3.4-5.0); ALBUMIN/GLOBULIN RATIO 0.9 (1.1-1.5); ALKALINE PHOSPHATASE 79 IU/L (46-116); ANION GAP 12 (8-16); ASPARTATE AMINO TRANSFERASE 64 U/L (10-37); BILIRUBIN,TOTAL 0.7 MG/DL (0.1-1.0); BLOOD UREA NITROGEN 20 MG/DL (7-18); CALCIUM 8.4 MG/DL (8.5-10.1); CHLORIDE 102 MMOL/L (99-107); CREATININE 0.87 MG/DL (0.60-1.10); GLUCOSE 154 MG/DL (70-104); POTASSIUM 3.1 MMOL/L (3.5-5.1); SODIUM 139 MMOL/L (135-145); eGFR > 90 ML/MIN
[2023-06-06 19:30] LABS: PLATELET ESTIMATE NORMAL
[2023-06-06 19:31] LABS: MICROCYTOSIS 2+
[2023-06-06 19:41] LABS: CLARITY,URINE SLIGHTLY CLOUDY (Clear); COLOR,URINE YELLOW (Yellow); GLUCOSE, URINE 100 mg/dl (Neg); KETONES,URINE 15 mg/dl (Neg); LEUKOCYTE ESTERASE ,URINE NEGATIVE (Neg); NITRITES, URINE NEGATIVE (Neg); OCCULT BLOOD,URINE TRACE-INTACT (Neg); PH,URINE 5.5 (4.8-8.0); PROTEIN,URINE 100 mg/dl (Neg)
[2023-06-06 19:43] LABS: POIKILOCYTOSIS FEW; TARGET CELLS FEW; TEAR DROP CELLS FEW
[2023-06-06 19:45] LABS: UA COLLECTION TYPE STRAIGHT CATH
[2023-06-06 19:47] LABS: CELLULAR CAST 0-4 /LPF (NEGATIVE); MUCUS STRANDS MODERATE /LPF (Neg)
[2023-06-06 19:48] LABS: SQUAMOUS EPITHELIAL CELL,UR FEW /LPF (FEW)
[2023-06-06 19:50] LABS: BACTERIA,URINE NONE SEEN /HPF (Neg); SPERM FEW /HPF (NEGATIVE)
[2023-06-06 19:51] LABS: TRANSITIONAL EPI CELLS,URINE FEW /HPF
[2023-06-06 19:59] LABS: URINE AMPHETAMINE SCREEN POSITIVE (Neg); URINE BARBITUATE SCREEN NEGATIVE (Neg); URINE BENZODIAZEPINES SCREEN NEGATIVE (Neg); URINE CANNABINOID SCREEN POSITIVE (Neg); URINE COCAINE SCREEN NEGATIVE (Neg); URINE METHADONE SCREEN NEGATIVE (Neg); URINE OPIATE SCREEN NEGATIVE (Neg); URINE PHENCYCLIDINE SCREEN NEGATIVE (Neg)
[2023-06-06] MEDS ORDERED: potassium Cl 20 mEq SR tablet PO STA (20:37)
[2023-06-06 22:52] VITALS: BP 116/69; PULSE 48; RESP 16; O2SAT 98
== END 2023-06-06 22:53 | disposition home or self-care (01) ==
LOC: ER 18:07
DX: R07.9 Chest pain, unspecified (principal)
CPT/HCPCS: 36415; 71045; 80053; 80305; 81001; 82948; 83880; 84484; 85008; 85025; 87088; 93005; 96360; 96361; 99285; J7030; C1758

== ENCOUNTER 2023-06-07 09:49 | Inpatient (IN) | payer MEDICAID ==
[~2023-06-07] VITALS: Ht 172.7 cm; Wt 74.2 kg
[2023-06-07] MEDS ORDERED: acetaminophen 325mg tablet PO STA (10:22)
[2023-06-07] MEDS ORDERED: normal saline 1000ML IV soln IV ONE (10:25)
[2023-06-07] MEDS ORDERED: LORazepam 2 mg/ml vial IV ONE (10:25)
[2023-06-07] MEDS ORDERED: vancomycin/NS 1 GM ADD-VANTAGE 250 ML IV ONE (10:25)
[2023-06-07] MEDS ORDERED: cefepime 2g/NS 100ml ADVANTAGE 100 ML IV ONE (10:45)
[2023-06-07 11:07] LABS: BASOPHILS % (AUTO) 0.2 % (0-1); EOSINOPHILS # (AUTO) 0.1 X10'3 (0-0.9); EOSINOPHILS % (AUTO) 0.4 % (0-6); HEMATOCRIT 27.8 % (42.0-52.0); HEMOGLOBIN 8.7 g/dl (14.0-17.9); LYMPHOCYTES # (AUTO) 1.5 X10'3 (1.1-4.8); LYMPHOCYTES % (AUTO) 11.1 % (21-51); MEAN CORPUSCULAR HEMOGLOBIN 19.8 PG (27.0-31.0); MEAN CORPUSCULAR HGB CONC 31.3 g/dL (33.0-36.5); MEAN CORPUSCULAR VOLUME 63.1 FL (78-98); MEAN PLATELET VOLUME 7.6 FL (7.4-10.4); MONOCYTES # (AUTO) 0.8 X10'3 (0-0.9); NEUTROPHILS # (AUTO) 11.1 X10'3 (1.8-7.7); NEUTROPHILS % (AUTO) 82.3 % (42-75); PLATELET COUNT 320 X10'3 (140-440); WHITE BLOOD COUNT 13.4 X10'3 (4.5-11.0)
[2023-06-07 11:15] LABS: ALANINE AMINOTRANSFERASE 44 U/L (12-78); ALBUMIN 3.5 G/DL (3.4-5.0); ALBUMIN/GLOBULIN RATIO 0.9 (1.1-1.5); ALKALINE PHOSPHATASE 87 IU/L (46-116); ANION GAP 11 (8-16); ASPARTATE AMINO TRANSFERASE 50 U/L (10-37); BILIRUBIN,TOTAL 0.7 MG/DL (0.1-1.0); BLOOD UREA NITROGEN 17 MG/DL (7-18); BUN/CREATININE RATIO 21.3 (10.0-20.0); CALCIUM 8.6 MG/DL (8.5-10.1); CHLORIDE 98 MMOL/L (99-107); GLUCOSE 95 MG/DL (70-104); POTASSIUM 3.3 MMOL/L (3.5-5.1); SODIUM 133 MMOL/L (135-145); TOTAL CARBON DIOXIDE 24.3 MMOL/L (24-32); TOTAL PROTEIN 7.2 G/DL (6.4-8.2); eGFR > 90 ML/MIN
[2023-06-07 11:19] LABS: MAGNESIUM 1.7 MG/DL (1.5-2.4)
[2023-06-07 12:39] LABS: HYPOCHROMASIA 2+; PLATELET ESTIMATE NORMAL; POLYCHROMASIA FEW
[2023-06-07 12:40] LABS: ANISOCYTOSIS 1+; ELLIPTOCYTES 1+; MICROCYTOSIS 2+; SCHISTOCYTES FEW; TARGET CELLS FEW; TEAR DROP CELLS 1+
[2023-06-07 12:56] LABS: CLARITY,URINE CLEAR (Clear); COLOR,URINE STRAW (Yellow); GLUCOSE, URINE NEGATIVE (Neg); KETONES,URINE NEGATIVE (Neg); LEUKOCYTE ESTERASE ,URINE NEGATIVE (Neg); NITRITES, URINE NEGATIVE (Neg); OCCULT BLOOD,URINE TRACE-INTACT (Neg); PROTEIN,URINE NEGATIVE (Neg)
[2023-06-07 12:57] LABS: UA COLLECTION TYPE CLN CATCH MIDSTREAM
[2023-06-07 13:03] LABS: BACTERIA,URINE NONE SEEN /HPF (Neg); MUCUS STRANDS NONE SEEN /LPF (Neg); RBC,URINE 0-2 /HPF (0-2); SQUAMOUS EPITHELIAL CELL,UR NONE SEEN /LPF (FEW); WBC,URINE 0-4 /HPF (0-4)
[2023-06-07 13:40] LABS: ETHANOL < 0.010 GM/DL (0.0-0.010)
[2023-06-07] MEDS ORDERED: magnesium 4gm in 100ml NS 100 ML IV PRN (14:10)
[2023-06-07] MEDS ORDERED: mag hydrox/Alum hydrox/simeth 30ml oral suspension PO PRN (14:10)
[2023-06-07] MEDS ORDERED: ondansetron/PF 4mg/2ml inj IV PRN (14:10)
[2023-06-07] MEDS ORDERED: magnesium Cl slow-release 64mg tablet PO PRN (14:10)
[2023-06-07] MEDS ORDERED: magnesium hydroxide 30ml (MOM) UD suspension PO PRN (14:10)
[2023-06-07] MEDS ORDERED: magnesium 2GM in 50ml NS 50 ML IV PRN (14:10)
[2023-06-07] MEDS ORDERED: potassium Cl 20 mEq SR tablet PO PRN (14:10)
[2023-06-07] MEDS ORDERED: potassium Cl 40MEQ/1/2NS 520ml 520 ML IV PRN (14:10)
[2023-06-07] MEDS: normal saline 1000ml 1,000 ML IV SCH (14:55)
--- NOTE | 2023-06-07 15:08 | NUR ---
Report called to OSCAR Ty on PCU. Pt transferred upstairs via wheelchair.
--- NOTE | 2023-06-07 15:15 | NUR ---
pt arrived to unit via wheelchair. pt is very lethargic. Unable to stay awake for a proper assessment. All pt wants to do is sleep. Obtained vital signs and did a nasal swab for mrsa. Pt has ns @ 100/hr per orders. pt is alert to self and place. Pt is voiding via urinal. Last bm was 06/06. 2-piv. 20g Addendum: 06/07/23 at 1755 by Charmaine Ching RN 20G to rt fa and 20g to left fa. pt is sinus rhythm on tele box #17 pt is on room air, vss. No s/s of pain or distress. call light within reach. urinal at bedside. bed in low position.
[2023-06-07 15:30] VITALS: BP 108/68; PULSE 80; RESP 16; TEMP 100; O2SAT 97
[2023-06-07] MEDS: cefepime 1GM/NS ADD-VANTAGE 100 ML IV SCH (16:00)
[2023-06-07 18:00] VITALS: BP 138/87; PULSE 87; RESP 16; TEMP 100.7; O2SAT 97
--- NOTE | 2023-06-07 18:10 | NUR ---
Patient in room PCU 3016. I have received report from Charmaine MOORE and had the opportunity to ask questions and assume patient care.
[2023-06-07 20:00] VITALS: RESP 19; O2SAT 97
[2023-06-07] MEDS: K and/or MAG REPLACEMENT MC SCH (20:00)
[2023-06-07] MEDS: docusate sod 100mg capsule PO SCH (20:11)
[2023-06-07] MEDS: potassium Cl 20 mEq SR tablet PO PRN (20:12)
[2023-06-07] MEDS: acetaminophen 325mg tablet PO PRN (20:18)
[2023-06-07 22:00] VITALS: BP 116/69; PULSE 69; RESP 16; O2SAT 100
[2023-06-08] VITALS (8 sets, daily range): BP systolic 94–143; BP diastolic 55–84; PULSE 54–85; RESP 14–16; TEMP 97.8–99.8; O2SAT 95–100
[2023-06-08] MEDS: normal saline 1000ml 1,000 ML IV SCH ×3 (00:10→14:31)
[2023-06-08] MEDS: cefepime 1GM/NS ADD-VANTAGE 100 ML IV SCH ×3 (00:19→16:21)
[2023-06-08] MEDS: potassium Cl 20 mEq SR tablet PO PRN ×2 (00:20→05:35)
--- NOTE | 2023-06-08 06:02 | NUR ---
Problems reprioritized. Patient report given, questions answered & plan of care reviewed with Fernando MOORE.
--- NOTE | 2023-06-08 06:17 | NUR ---
Patient in room PCU 3016. I have received report from HONG MOORE and had the opportunity to ask questions and assume patient care.
[2023-06-08 06:34] LABS: BASOPHILS % (AUTO) 0.3 % (0-1); EOSINOPHILS # (AUTO) 0.1 X10'3 (0-0.9); EOSINOPHILS % (AUTO) 0.9 % (0-6); HEMATOCRIT 25.7 % (42.0-52.0); HEMOGLOBIN 8.2 g/dl (14.0-17.9); LYMPHOCYTES # (AUTO) 1.7 X10'3 (1.1-4.8); LYMPHOCYTES % (AUTO) 14.9 % (21-51); MEAN CORPUSCULAR HEMOGLOBIN 20.2 PG (27.0-31.0); MEAN CORPUSCULAR HGB CONC 31.9 g/dL (33.0-36.5); MEAN CORPUSCULAR VOLUME 63.2 FL (78-98); MEAN PLATELET VOLUME 7.7 FL (7.4-10.4); MONOCYTES # (AUTO) 0.8 X10'3 (0-0.9); MONOCYTES % (AUTO) 6.6 % (2-12); NEUTROPHILS # (AUTO) 8.9 X10'3 (1.8-7.7); NEUTROPHILS % (AUTO) 77.3 % (42-75); PLATELET COUNT 284 X10'3 (140-440); RED BLOOD COUNT 4.07 X10'6 (4.70-6.10); RED CELL DISTRIBUTION WIDTH 16.5 % (11.5-14.5); WHITE BLOOD COUNT 11.5 X10'3 (4.5-11.0)
[2023-06-08 06:40] LABS: ALBUMIN 2.8 G/DL (3.4-5.0); ANION GAP 8 (8-16); BLOOD UREA NITROGEN 9 MG/DL (7-18); BUN/CREATININE RATIO 13.6 (10.0-20.0); CALCIUM 8.2 MG/DL (8.5-10.1); CHLORIDE 104 MMOL/L (99-107); CREATININE 0.66 MG/DL (0.60-1.10); GLUCOSE 93 MG/DL (70-104); MAGNESIUM 1.8 MG/DL (1.5-2.4); POTASSIUM 3.7 MMOL/L (3.5-5.1); SODIUM 138 MMOL/L (135-145); TOTAL CARBON DIOXIDE 25.8 MMOL/L (24-32); eGFR > 90 ML/MIN
--- NOTE | 2023-06-08 07:06 | NUR ---
This RN has reviewed and agrees w/the SNACK STEWARD's physical assessment of this patient.
[2023-06-08 07:25] LABS: ANISOCYTOSIS 1+; MICROCYTOSIS 2+; PLATELET ESTIMATE NORMAL; POIKILOCYTOSIS FEW
[2023-06-08] MEDS: K and/or MAG REPLACEMENT MC SCH ×2 (08:00→20:00)
[2023-06-08] MEDS: enoxaparin 40mg/0.4ml syringe SUBCUT SCH (08:08)
[2023-06-08] MEDS: docusate sod 100mg capsule PO SCH ×2 (08:08→21:06)
[2023-06-08] MEDS: acetaminophen 325mg tablet PO PRN ×2 (13:18→21:54)
--- NOTE | 2023-06-08 18:10 | NUR ---
Patient in room PCU 3016. I have received report from Fernando MOORE and had the opportunity to ask questions and assume patient care.
--- NOTE | 2023-06-08 18:24 | NUR ---
Problems reprioritized. Patient report given TO MARTINE MOORE, questions answered & plan of care reviewed with .
[2023-06-09] VITALS (8 sets, daily range): BP systolic 113–142; BP diastolic 54–83; PULSE 53–104; RESP 10–20; TEMP 97.5–98.8; O2SAT 96–100
[2023-06-09] MEDS: cefepime 1GM/NS ADD-VANTAGE 100 ML IV SCH ×4 (00:18→23:35)
--- NOTE | 2023-06-09 03:13 | NUR ---
PRODUCTION DIRECTOR documentation: I have reviewed and agree with assessment performed and documented by MARTINE Kwong
--- NOTE | 2023-06-09 06:07 | NUR ---
Problems reprioritized. Patient report given, questions answered & plan of care reviewed with Fernando MOORE.
[2023-06-09] MEDS: normal saline 1000ml 1,000 ML IV SCH ×3 (06:10→22:27)
--- NOTE | 2023-06-09 06:10 | NUR ---
Patient in room PCU 3016. I have received report from MARTINE MOORE and had the opportunity to ask questions and assume patient care.
[2023-06-09] MEDS: acetaminophen 325mg tablet PO PRN ×2 (06:43→07:53)
[2023-06-09 07:46] LABS: BASOPHILS # (AUTO) 0.1 X10'3 (0-0.2); BASOPHILS % (AUTO) 0.8 % (0-1); EOSINOPHILS # (AUTO) 0.3 X10'3 (0-0.9); EOSINOPHILS % (AUTO) 3.3 % (0-6); HEMATOCRIT 27.5 % (42.0-52.0); HEMOGLOBIN 8.7 g/dl (14.0-17.9); LYMPHOCYTES # (AUTO) 1.6 X10'3 (1.1-4.8); LYMPHOCYTES % (AUTO) 19.6 % (21-51); MEAN CORPUSCULAR HEMOGLOBIN 20.2 PG (27.0-31.0); MEAN CORPUSCULAR HGB CONC 31.8 g/dL (33.0-36.5); MEAN CORPUSCULAR VOLUME 63.5 FL (78-98); MEAN PLATELET VOLUME 8.5 FL (7.4-10.4); MONOCYTES # (AUTO) 0.6 X10'3 (0-0.9); MONOCYTES % (AUTO) 7.4 % (2-12); NEUTROPHILS # (AUTO) 5.6 X10'3 (1.8-7.7); NEUTROPHILS % (AUTO) 68.9 % (42-75); PLATELET COUNT 299 X10'3 (140-440); RED BLOOD COUNT 4.32 X10'6 (4.70-6.10); RED CELL DISTRIBUTION WIDTH 16.3 % (11.5-14.5); WHITE BLOOD COUNT 8.2 X10'3 (4.5-11.0)
[2023-06-09] MEDS: docusate sod 100mg capsule PO SCH ×2 (07:53→20:07)
[2023-06-09] MEDS: enoxaparin 40mg/0.4ml syringe SUBCUT SCH (07:54)
[2023-06-09] MEDS: K and/or MAG REPLACEMENT MC SCH ×2 (08:00→20:00)
[2023-06-09 08:02] LABS: ALBUMIN 2.9 G/DL (3.4-5.0); ANION GAP 8 (8-16); BLOOD UREA NITROGEN 12 MG/DL (7-18); BUN/CREATININE RATIO 16.7 (10.0-20.0); CALCIUM 8.5 MG/DL (8.5-10.1); CHLORIDE 106 MMOL/L (99-107); CREATININE 0.72 MG/DL (0.60-1.10); GLUCOSE 87 MG/DL (70-104); MAGNESIUM 1.9 MG/DL (1.5-2.4); POTASSIUM 4.3 MMOL/L (3.5-5.1); SODIUM 139 MMOL/L (135-145); TOTAL CARBON DIOXIDE 25.5 MMOL/L (24-32); eGFR > 90 ML/MIN
[2023-06-09] MEDS ORDERED: ibuprofen 200mg tablet PO PRN (11:30)
--- NOTE | 2023-06-09 16:46 | NUR ---
WALKED WITH PT. 300FT. PT. WALKED INDEPENDENTLY
[2023-06-09] MEDS: traMADol 50MG tablet PO PRN ×2 (16:49→22:25)
--- NOTE | 2023-06-09 18:38 | NUR ---
Problems reprioritized. Patient report given TO LINWOOD MOORE, questions answered & plan of care reviewed with .
[2023-06-10 02:00] VITALS: BP 140/75; PULSE 63; RESP 13; TEMP 97.3; O2SAT 99
[2023-06-10 06:06] LABS: BASOPHILS # (AUTO) 0.1 X10'3 (0-0.2); BASOPHILS % (AUTO) 0.8 % (0-1); EOSINOPHILS # (AUTO) 0.3 X10'3 (0-0.9); EOSINOPHILS % (AUTO) 4.4 % (0-6); HEMATOCRIT 27.8 % (42.0-52.0); HEMOGLOBIN 8.7 g/dl (14.0-17.9); LYMPHOCYTES # (AUTO) 2.2 X10'3 (1.1-4.8); LYMPHOCYTES % (AUTO) 32.1 % (21-51); MEAN CORPUSCULAR HGB CONC 31.4 g/dL (33.0-36.5); MEAN CORPUSCULAR VOLUME 63.6 FL (78-98); MEAN PLATELET VOLUME 8.1 FL (7.4-10.4); MONOCYTES # (AUTO) 0.5 X10'3 (0-0.9); NEUTROPHILS # (AUTO) 3.7 X10'3 (1.8-7.7); NEUTROPHILS % (AUTO) 54.7 % (42-75); PLATELET COUNT 303 X10'3 (140-440); RED BLOOD COUNT 4.37 X10'6 (4.70-6.10); WHITE BLOOD COUNT 6.8 X10'3 (4.5-11.0)
--- NOTE | 2023-06-10 06:28 | NUR ---
Problems reprioritized. Patient report given, questions answered & plan of care reviewed with Fernando
--- NOTE | 2023-06-10 06:31 | NUR ---
Patient in room PCU 3016. I have received report from LINWOOD MOORE and had the opportunity to ask questions and assume patient care.
[2023-06-10 06:33] LABS: ALBUMIN 2.8 G/DL (3.4-5.0); ANION GAP 9 (8-16); BLOOD UREA NITROGEN 15 MG/DL (7-18); BUN/CREATININE RATIO 22.4 (10.0-20.0); CALCIUM 8.7 MG/DL (8.5-10.1); CHLORIDE 103 MMOL/L (99-107); CREATININE 0.67 MG/DL (0.60-1.10); GLUCOSE 86 MG/DL (70-104); MAGNESIUM 1.9 MG/DL (1.5-2.4); POTASSIUM 4.3 MMOL/L (3.5-5.1); SODIUM 138 MMOL/L (135-145); TOTAL CARBON DIOXIDE 26.2 MMOL/L (24-32); eGFR > 90 ML/MIN
--- NOTE | 2023-06-10 06:40 | NUR ---
There was a mistake in pts consent form,RN called MRI this morning and mistake rectified.
[2023-06-10] MEDS: cefepime 1GM/NS ADD-VANTAGE 100 ML IV SCH (07:45)
[2023-06-10] MEDS: enoxaparin 40mg/0.4ml syringe SUBCUT SCH (07:46)
[2023-06-10] MEDS: docusate sod 100mg capsule PO SCH (07:46)
[2023-06-10 08:00] VITALS: BP 135/78; PULSE 16; RESP 16; TEMP 98.4; O2SAT 100
[2023-06-10] MEDS: K and/or MAG REPLACEMENT MC SCH (08:00)
[2023-06-10 08:03] LABS: ANISOCYTOSIS 1+; HYPOCHROMASIA 2+; MICROCYTOSIS 2+; PLATELET ESTIMATE NORMAL; POLYCHROMASIA 1+
[2023-06-10 08:04] LABS: SCHISTOCYTES FEW; TARGET CELLS 1+; TEAR DROP CELLS FEW
[2023-06-10 08:16] VITALS: RESP 16; O2SAT 100
[2023-06-10] MEDS ORDERED: GADOTERATE MEGLUMINE 7.5 MMOL/15 ML VIAL IV ONE (10:05)
[2023-06-10 12:23] VITALS: BP 117/57; PULSE 62; RESP 13; TEMP 98.4; O2SAT 94
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
[2023-06-10] MEDS ORDERED: CEPH500C2 PO (14:28)
--- NOTE | 2023-06-10 16:04 | NUR ---
PT. ALERT, ORIENTATED, AND STABLE UPON DISCHARGE. IV CANNULA WHOLE AND COMPLETE UPON REMOVAL. PT LEFT WITH ALL BELONGINGS. PT. WALKED TO THE [place]. PT. SAFELY ESCORTED OUT OF THE HOSPITAL. PT. EDUCATED ON WOUND CARE, NEW MEDICATIONS, AND TO FOLLOW UP WITH PRIMARY CARE PROVIDER WITHIN 1 WEEK. PT. ALSO, EDUCATED TO QUIT SMOKING CIGARETTES, ALCOHOL ABUSE, AND DRUGS. PT. WAS PROVIDED WITH CLOTHES, AND FOOD UPON DISCHARGE.
--- NOTE | 2023-06-11 13:34 | NUR ---
Received order for consult. Patient is discharged. Tried to call and follow up with patient and there is no number in chart.
== END 2023-06-10 15:43 | disposition home or self-care (01) | DRG 720 ==
LOC: ER 09:50 → ED HOLD 14:10 → PCU 3S 15:33
PROVIDERS: ADMIT Family Medicine; ATTEND Family Medicine
DX: A41.9 Sepsis, unspecified organism (principal); K74.60 Unspecified cirrhosis of liver; E87.6 Hypokalemia; F19.10 Other psychoactive substance abuse, uncomplicated; G89.4 Chronic pain syndrome; M19.90 Unspecified osteoarthritis, unspecified site; L03.811 Cellulitis of head [any part, except face]; L98.9 Disorder of the skin and subcutaneous tissue, unspecified; Z88.0 Allergy status to penicillin; Z82.61 Family history of arthritis; Z98.1 Arthrodesis status; Z88.2 Allergy status to sulfonamides
CPT/HCPCS: 36415; 70553; 71045; 74176; 80048; 80053; 80320; 81001; 83605; 83735; 84145; 84484; 85008; 85025; 87040; 87081; 99285; A9575; G0378; J0692; J1650; J2060; J3370; J7030

== ENCOUNTER 2023-06-16 13:08 | Emergency (ER) | payer MEDICAID ==
[~2023-06-16] VITALS: Ht 172.7 cm; Wt 69.5 kg
[~2023-06-16 13:08] MED LIST changes: +CEPH500C2 PO; -NO HOME MEDS
[2023-06-16 13:12] VITALS: BP 183/101; TEMP 98.3
[2023-06-16 19:48] VITALS: PULSE 121; RESP 22; O2SAT 98
== END 2023-06-16 20:44 | disposition left against medical advice (07) ==
LOC: ER 13:08
DX: R53.1 Weakness (principal); Z53.21 Procedure and treatment not carried out due to patient leaving prior to being seen by health care provider
CPT/HCPCS: 99281

== ENCOUNTER 2023-06-20 05:51 | Emergency (ER) | payer MEDICAID ==
[~2023-06-20] VITALS: Ht 172.7 cm; Wt 59.1 kg
[2023-06-20 07:39] VITALS: BP 174/88; PULSE 61; TEMP 97.9; O2SAT 98
[2023-06-20 07:43] VITALS: RESP 16
== END 2023-06-20 10:06 | disposition home or self-care (01) ==
LOC: ER 05:52
DX: M25.551 Pain in right hip (principal); G89.29 Other chronic pain; M54.9 Dorsalgia, unspecified; Z88.0 Allergy status to penicillin; W19.XXXA Unspecified fall, initial encounter; Y93.89 Activity, other specified; Y92.89 Other specified places as the place of occurrence of the external cause; Y99.8 Other external cause status
CPT/HCPCS: 73502; 99284

== ENCOUNTER 2023-12-12 20:07 | Emergency (ER) | payer SELFPAY ==
[~2023-12-12] VITALS: Ht 177.8 cm; Wt 75.0 kg
[2023-12-12 20:20] VITALS: BP 147/81; PULSE 101; RESP 20; TEMP 97.8; O2SAT 100
[2023-12-12] MEDS ORDERED: ketorolac trometh inj. 60 MG/2 ML VIAL IM ONE (20:30)
== END 2023-12-12 21:08 | disposition home or self-care (01) ==
LOC: ER 20:07
DX: L84 Corns and callosities (principal); F10.10 Alcohol abuse, uncomplicated; Y90.9 Presence of alcohol in blood, level not specified
CPT/HCPCS: 99283

== ENCOUNTER 2024-01-11 20:20 | Emergency (ER) | payer MEDICAID ==
[~2024-01-11] VITALS: Ht 172.7 cm; Wt 68.2 kg
[2024-01-11] MEDS ORDERED: LIDO700A32 TOP (22:35)
[2024-01-11] MEDS ORDERED: ACET-2119 PO (22:35)
[2024-01-11] MEDS ORDERED: DOXY150T9 PO (22:46)
[2024-01-11] MEDS: ketorolac trometh. 30mg/ml inj. IM ONE (23:03)
[2024-01-11 23:18] VITALS: BP 150/87; PULSE 98; RESP 18; TEMP 98.9; O2SAT 98
== END 2024-01-11 23:19 | disposition home or self-care (01) ==
LOC: ER 20:21
DX: S83.8X2A Sprain of other specified parts of left knee, initial encounter (principal); F10.10 Alcohol abuse, uncomplicated; W17.89XA Other fall from one level to another, initial encounter; Y93.89 Activity, other specified; Y92.89 Other specified places as the place of occurrence of the external cause; Y99.8 Other external cause status; Z98.890 Other specified postprocedural states; Y90.9 Presence of alcohol in blood, level not specified
CPT/HCPCS: 73590; 96372; 99283; J1885

== ENCOUNTER 2024-01-15 15:45 | Emergency (ER) | payer MEDICAID ==
[~2024-01-15] VITALS: Ht 172.7 cm; Wt 71.0 kg
[~2024-01-15 15:45] MED LIST changes: +ACET-2119 PO; -CEPH500C2 PO; +DOXY150T9 PO; +LIDO700A32 TOP
[2024-01-15 16:08] VITALS: BP 166/77; PULSE 93; RESP 19; TEMP 98.7; O2SAT 99
== END 2024-01-15 19:11 | disposition home or self-care (01) ==
LOC: ER 15:46
DX: F15.90 Other stimulant use, unspecified, uncomplicated (principal); Z88.0 Allergy status to penicillin; Z79.2 Long term (current) use of antibiotics; Z79.1 Long term (current) use of non-steroidal anti-inflammatories (NSAID)
CPT/HCPCS: 99281

== ENCOUNTER 2024-02-14 00:55 | Emergency (ER) | payer MEDICAID ==
[~2024-02-14] VITALS: Ht 172.7 cm; Wt 63.6 kg
[~2024-02-14 00:55] MED LIST changes: -ACET-2119 PO; -DOXY150T9 PO
[2024-02-14] MEDS ORDERED: OLANZapine 2.5MG tablet PO STA (01:12)
[2024-02-14 02:23] VITALS: BP 173/97; PULSE 61; RESP 20; TEMP 97.9; O2SAT 99
== END 2024-02-14 02:28 | disposition home or self-care (01) ==
LOC: ER 00:55
DX: F15.129 Other stimulant abuse with intoxication, unspecified (principal); F10.10 Alcohol abuse, uncomplicated; G89.29 Other chronic pain; M54.9 Dorsalgia, unspecified; Z88.0 Allergy status to penicillin; Z79.899 Other long term (current) drug therapy
CPT/HCPCS: 99282; 99283

== ENCOUNTER 2024-02-14 04:06 | Emergency (ER) | payer MEDICAID ==
[~2024-02-14] VITALS: Ht 172.7 cm; Wt 68.2 kg
[2024-02-14] MEDS: olanzapine 10mg tablet PO STA (04:31)
[2024-02-14 05:41] VITALS: BP 168/92; PULSE 64; RESP 19; TEMP 98; O2SAT 100
== END 2024-02-14 05:44 | disposition home or self-care (01) ==
LOC: ER 04:06
DX: F15.10 Other stimulant abuse, uncomplicated (principal); G89.29 Other chronic pain; M54.9 Dorsalgia, unspecified; F10.10 Alcohol abuse, uncomplicated; Z88.0 Allergy status to penicillin; Z79.899 Other long term (current) drug therapy
CPT/HCPCS: 99283

== ENCOUNTER 2024-03-16 01:53 | Emergency (ER) | payer MEDICAID ==
[~2024-03-16] VITALS: Ht 172.7 cm; Wt 65.9 kg
[2024-03-16] MEDS ORDERED: TRIA15CR62 TOP (02:41)
[2024-03-16] MEDS ORDERED: PERM60CR19 TP (02:41)
[2024-03-16 03:16] VITALS: BP 132/92; PULSE 87; RESP 16; TEMP 98; O2SAT 97
== END 2024-03-16 03:19 | disposition home or self-care (01) ==
LOC: ER 01:54
DX: R21 Rash and other nonspecific skin eruption (principal); Z88.0 Allergy status to penicillin; Z79.899 Other long term (current) drug therapy
CPT/HCPCS: 99283

== ENCOUNTER 2024-03-23 23:32 | Emergency (ER) | payer MEDICAID ==
[~2024-03-23] VITALS: Ht 172.7 cm; Wt 70.0 kg
[~2024-03-23 23:32] MED LIST changes: +PERM60CR19 TP; +TRIA15CR62 TOP
[2024-03-23 23:42] VITALS: BP 154/86; PULSE 98; RESP 16; TEMP 98; O2SAT 100
[2024-03-24] MEDS ORDERED: DOXY-457 PO (01:20)
[2024-03-24] MEDS: ondansetron 4mg rapidly disintigrating tab PO ONE (01:26)
[2024-03-24] MEDS: DOXYCYCLINE 100MG CAPSULE PO STA (01:26)
== END 2024-03-24 01:40 | disposition home or self-care (01) ==
LOC: ER 23:33
DX: L03.211 Cellulitis of face (principal); F15.90 Other stimulant use, unspecified, uncomplicated; Z88.0 Allergy status to penicillin; Z79.2 Long term (current) use of antibiotics; Z79.899 Other long term (current) drug therapy
CPT/HCPCS: 99283

== ENCOUNTER 2024-03-24 14:37 | Emergency (ER) | payer MEDICAID ==
[~2024-03-24] VITALS: Ht 172.7 cm; Wt 70.0 kg
[~2024-03-24 14:37] MED LIST changes: +DOXY-457 PO
[2024-03-24 15:33] VITALS: BP 133/87; PULSE 90; RESP 14; TEMP 98.5; O2SAT 99
== END 2024-03-24 15:34 | disposition home or self-care (01) ==
LOC: ER 14:38
DX: Z00.00 Encounter for general adult medical examination without abnormal findings (principal); Z88.0 Allergy status to penicillin; G89.29 Other chronic pain; M54.9 Dorsalgia, unspecified; F10.10 Alcohol abuse, uncomplicated; F15.90 Other stimulant use, unspecified, uncomplicated
CPT/HCPCS: 99281

== ENCOUNTER 2024-04-02 09:52 | Emergency (ER) | payer MEDICAID ==
[~2024-04-02] VITALS: Ht 172.7 cm; Wt 69.9 kg
[~2024-04-02 09:52] MED LIST changes: -DOXY-457 PO; -TRIA15CR62 TOP
[2024-04-02 10:04] VITALS: BP 134/80; PULSE 74; RESP 16; TEMP 98; O2SAT 100
[2024-04-02] MEDS: acetaminophen 325mg tablet PO ONE (14:47)
== END 2024-04-02 15:22 | disposition home or self-care (01) ==
LOC: ER 09:52
DX: M25.511 Pain in right shoulder (principal); G89.29 Other chronic pain; M54.9 Dorsalgia, unspecified; F17.200 Nicotine dependence, unspecified, uncomplicated; F15.90 Other stimulant use, unspecified, uncomplicated; F19.90 Other psychoactive substance use, unspecified, uncomplicated; F10.10 Alcohol abuse, uncomplicated; Z88.0 Allergy status to penicillin
CPT/HCPCS: 73030; 93971; 99284

== ENCOUNTER 2024-06-16 08:33 | Emergency (ER) | payer MEDICAID ==
[~2024-06-16] VITALS: Ht 172.7 cm; Wt 71.6 kg
[2024-06-16 08:47] VITALS: BP 152/83; PULSE 89; TEMP 98.2; O2SAT 99
[2024-06-16 10:32] VITALS: RESP 14
== END 2024-06-16 11:53 | disposition left against medical advice (07) ==
LOC: ER 08:34
DX: R05.9 Cough, unspecified (principal); Z20.822 Contact with and (suspected) exposure to COVID-19; J00 Acute nasopharyngitis [common cold]; R09.81 Nasal congestion; Z53.21 Procedure and treatment not carried out due to patient leaving prior to being seen by health care provider
CPT/HCPCS: 36415; 87811

== ENCOUNTER 2024-06-17 01:18 | Emergency (ER) | payer MEDICAID ==
[~2024-06-17] VITALS: Ht 172.7 cm; Wt 70.0 kg
[2024-06-17 01:26] VITALS: BP 163/102; PULSE 91; RESP 16; O2SAT 100
[2024-06-17 01:58] LABS: BILIRUBIN,URINE NEGATIVE (Neg); CLARITY,URINE CLEAR (Clear); COLOR,URINE YELLOW (Yellow); GLUCOSE, URINE NEGATIVE (Neg); KETONES,URINE NEGATIVE (Neg); LEUKOCYTE ESTERASE ,URINE NEGATIVE (Neg); NITRITES, URINE NEGATIVE (Neg); OCCULT BLOOD,URINE NEGATIVE (Neg); PH,URINE 5.5 (4.8-8.0); PROTEIN,URINE NEGATIVE (Neg); UROBILINOGEN,URINE 0.2 E.U/dL (0.2-1.0)
[2024-06-17 02:10] LABS: UA COLLECTION TYPE CLN CATCH MIDSTREAM
[2024-06-17 03:46] VITALS: TEMP 98.1
== END 2024-06-17 03:48 | disposition left against medical advice (07) ==
LOC: ER 01:19
DX: R10.84 Generalized abdominal pain (principal); R11.0 Nausea; K59.00 Constipation, unspecified; G89.29 Other chronic pain; M54.9 Dorsalgia, unspecified; F10.10 Alcohol abuse, uncomplicated; F15.90 Other stimulant use, unspecified, uncomplicated; Z88.0 Allergy status to penicillin; Z79.899 Other long term (current) drug therapy; Z98.890 Other specified postprocedural states
CPT/HCPCS: 81003; 99283

== ENCOUNTER 2024-06-19 10:57 | Emergency (ER) | payer MEDICAID ==
[~2024-06-19] VITALS: Ht 172.7 cm; Wt 72.1 kg
[2024-06-19] MEDS ORDERED: DOXY-460 PO (13:09)
[2024-06-19 13:20] VITALS: BP 165/92; PULSE 70; RESP 16; TEMP 98.7; O2SAT 98
== END 2024-06-19 13:21 | disposition home or self-care (01) ==
LOC: ER 10:58
DX: L24.9 Irritant contact dermatitis, unspecified cause (principal); L03.115 Cellulitis of right lower limb; L03.116 Cellulitis of left lower limb; G89.29 Other chronic pain; M54.9 Dorsalgia, unspecified; F15.90 Other stimulant use, unspecified, uncomplicated; Z88.0 Allergy status to penicillin; Z79.2 Long term (current) use of antibiotics; Z79.899 Other long term (current) drug therapy
CPT/HCPCS: 99283

== ENCOUNTER 2024-07-11 07:59 | Emergency (ER) | payer MEDICAID ==
[~2024-07-11] VITALS: Ht 172.7 cm; Wt 68.0 kg
[2024-07-11] MEDS ORDERED: DOXY-460 PO (09:14)
[2024-07-11 09:21] VITALS: BP 165/87; PULSE 98; RESP 18; TEMP 98.1; O2SAT 97
== END 2024-07-11 09:22 | disposition home or self-care (01) ==
LOC: ER 08:00
DX: L24.9 Irritant contact dermatitis, unspecified cause (principal); G89.29 Other chronic pain; F15.90 Other stimulant use, unspecified, uncomplicated; Z72.89 Other problems related to lifestyle; Z98.890 Other specified postprocedural states; Z86.19 Personal history of other infectious and parasitic diseases
CPT/HCPCS: 99283

== ENCOUNTER 2024-07-18 19:25 | Emergency (ER) | payer MEDICAID ==
[~2024-07-18] VITALS: Ht 172.7 cm; Wt 72.1 kg
[~2024-07-18 19:25] MED LIST changes: +DOXY-460 PO
[2024-07-18 19:29] VITALS: BP 145/83; PULSE 94; RESP 20; O2SAT 96
[2024-07-18] MEDS ORDERED: PERM60CR19 TOP (19:43)
[2024-07-18] MEDS ORDERED: MUPI15CR12 TOP (19:43)
[2024-07-18] MEDS: Permethrin Cream 60gm TP ONE (19:48)
[2024-07-18] MEDS: acetaminophen 325mg tablet PO ONE (19:48)
[2024-07-18] MEDS: CefTRIAXone 1000mg IM Kit (w/lidocaine diluent) IM ONE (19:49)
[2024-07-18 19:54] VITALS: TEMP 98.6
== END 2024-07-18 20:04 | disposition home or self-care (01) ==
LOC: ER 19:25
DX: L03.116 Cellulitis of left lower limb (principal); L98.9 Disorder of the skin and subcutaneous tissue, unspecified; B86 Scabies; F15.90 Other stimulant use, unspecified, uncomplicated; G89.29 Other chronic pain; M54.9 Dorsalgia, unspecified; Z88.0 Allergy status to penicillin; Z79.2 Long term (current) use of antibiotics; Z79.899 Other long term (current) drug therapy
CPT/HCPCS: 96372; 99283; J0696

== ENCOUNTER 2024-07-30 13:13 | Emergency (ER) | payer MEDICAID ==
[~2024-07-30] VITALS: Ht 172.7 cm; Wt 68.2 kg
[~2024-07-30 13:13] MED LIST changes: -DOXY-460 PO; +MUPI15CR12 TOP; +PERM60CR19 TOP
[2024-07-30 13:15] VITALS: BP 171/92; PULSE 101; TEMP 98.6; O2SAT 96
[2024-07-30 14:56] VITALS: RESP 16
[2024-07-30 15:02] LABS: BILIRUBIN,URINE NEGATIVE (Neg); CLARITY,URINE CLEAR (Clear); COLOR,URINE YELLOW (Yellow); GLUCOSE, URINE NEGATIVE (Neg); KETONES,URINE NEGATIVE (Neg); LEUKOCYTE ESTERASE ,URINE NEGATIVE (Neg); NITRITES, URINE NEGATIVE (Neg); OCCULT BLOOD,URINE TRACE-INTACT (Neg); PROTEIN,URINE NEGATIVE (Neg); UROBILINOGEN,URINE 0.2 E.U/dL (0.2-1.0)
[2024-07-30 15:08] LABS: UA COLLECTION TYPE VOIDED
[2024-07-30 15:10] LABS: BACTERIA,URINE NONE SEEN /HPF (Neg); MUCUS STRANDS NONE SEEN /LPF (Neg); RBC,URINE 0-2 /HPF (0-2); SQUAMOUS EPITHELIAL CELL,UR FEW /LPF (FEW); WBC,URINE 0-4 /HPF (0-4)
[2024-07-30 15:16] LABS: URINE AMPHETAMINE SCREEN POSITIVE (Neg); URINE BARBITUATE SCREEN NEGATIVE (Neg); URINE BENZODIAZEPINES SCREEN NEGATIVE (Neg); URINE CANNABINOID SCREEN POSITIVE (Neg); URINE COCAINE SCREEN NEGATIVE (Neg); URINE METHADONE SCREEN NEGATIVE (Neg); URINE OPIATE SCREEN NEGATIVE (Neg); URINE PHENCYCLIDINE SCREEN NEGATIVE (Neg)
== END 2024-07-30 15:15 | disposition home or self-care (01) ==
LOC: ER 13:14
DX: R45.1 Restlessness and agitation (principal); G89.29 Other chronic pain; M54.9 Dorsalgia, unspecified; F17.200 Nicotine dependence, unspecified, uncomplicated; F10.10 Alcohol abuse, uncomplicated; Z59.00 Homelessness unspecified; F15.90 Other stimulant use, unspecified, uncomplicated; Z98.890 Other specified postprocedural states; Z88.0 Allergy status to penicillin; Z79.899 Other long term (current) drug therapy; Z20.822 Contact with and (suspected) exposure to COVID-19
CPT/HCPCS: 36415; 80305; 81001; 87811; 99283

== ENCOUNTER 2024-08-15 15:07 | Emergency (ER) | payer MEDICAID ==
[~2024-08-15] VITALS: Ht 172.7 cm; Wt 66.1 kg
[2024-08-15 15:08] VITALS: PULSE 121; TEMP 99; O2SAT 97
[2024-08-15 15:36] VITALS: RESP 16
== END 2024-08-15 16:20 | disposition home or self-care (01) ==
LOC: ER 15:08
DX: F15.90 Other stimulant use, unspecified, uncomplicated (principal); G89.29 Other chronic pain; Z88.0 Allergy status to penicillin; Z79.899 Other long term (current) drug therapy
CPT/HCPCS: 99281

== ENCOUNTER 2024-08-17 00:54 | Emergency (ER) | payer MEDICAID ==
[~2024-08-17] VITALS: Ht 172.7 cm; Wt 70.3 kg
[2024-08-17 02:08] VITALS: RESP 20; O2SAT 98
[2024-08-17] MEDS ORDERED: MUPI22OI30 TOP (03:10)
[2024-08-17 03:21] VITALS: BP 150/97; PULSE 91; TEMP 98.1
[2024-08-17] MEDS ORDERED: PYRA144O PO (08:26)
== END 2024-08-17 04:34 | disposition home or self-care (01) ==
LOC: ER 00:54
DX: S90.412A Abrasion, left great toe, initial encounter (principal); L98.499 Non-pressure chronic ulcer of skin of other sites with unspecified severity; Z88.0 Allergy status to penicillin; Z79.2 Long term (current) use of antibiotics; Z79.899 Other long term (current) drug therapy; X58.XXXA Exposure to other specified factors, initial encounter; Y93.89 Activity, other specified; Y92.89 Other specified places as the place of occurrence of the external cause; Y99.8 Other external cause status
CPT/HCPCS: 99283

== ENCOUNTER 2024-08-17 07:55 | Emergency (ER) | payer MEDICAID ==
[~2024-08-17] VITALS: Ht 172.7 cm; Wt 67.8 kg
[~2024-08-17 07:55] MED LIST changes: +MUPI22OI30 TOP
[2024-08-17 08:02] VITALS: BP 150/88; PULSE 99; RESP 18; TEMP 97.8; O2SAT 98
[2024-08-17] MEDS ORDERED: PYRA144O PO (08:26)
== END 2024-08-17 08:43 | disposition home or self-care (01) ==
LOC: ER 07:56
DX: S50.812A Abrasion of left forearm, initial encounter (principal); G89.29 Other chronic pain; F15.90 Other stimulant use, unspecified, uncomplicated; Z88.0 Allergy status to penicillin; Z79.899 Other long term (current) drug therapy; X58.XXXA Exposure to other specified factors, initial encounter; Y93.89 Activity, other specified; Y92.89 Other specified places as the place of occurrence of the external cause; Y99.8 Other external cause status
CPT/HCPCS: 99282